=== PATIENT | female | born 1970 | race Caucasian/White ===

== ENCOUNTER 2016-06-01 21:15 | Emergency (ER) | payer BC ==
[~2016-06-01] VITALS: Ht 165.1 cm; Wt 99.8 kg
[~2016-06-01 21:15] MED LIST: ALBU8.5H2 IH; AZIT-21 PO; BCP; CTLP20T PO; INHA1INH8 MC; OSLT75CRX PO; PRD20T PO; PRD50T PO; TRM50T PO; VENL150C
[2016-06-01] MEDS ORDERED: RX-ALBUTEROL INHALER (VENTOLIN HFA) 18 GM IH STA (21:24)
--- NOTE | 2016-06-01 21:24 | ED Dyspnea ---
General Stated Complaint: COUGH,CONGESTION Source of Information: Patient Exam Limitations: No Limitations History of Present Illness Time Seen by Provider: 21:23 Initial Comments To ER with reports of shortness of breath, wheezing and awakening with a productive cough this morning. No fevers or chills. She's recently had a rash that was treated with a course of steroids and she is still on prednisone. She is a smoker about 6 cigarettes per day. She denies fevers or chills. She does report rhinorrhea. Denies any known history of reactive airway disease such as asthma Timing/Duration: 24 Hours Severity: Moderate Associated Symptoms: Wheezing Allergies and Home Medications Allergies Coded Allergies: Ibuprofen (Unverified Allergy, Mild, 08/25/08) Penicillins (Unverified Allergy, Mild, 08/25/08) Home Medications Oseltamivir Phosphate 75 Mg Cap #10 75 MG PO BID (Reported) Prednisone 20 Mg Tab #6 2 TAB PO DAILY 2 TABS DAILY IN THE MORNING FOR 3 DAYS 1 TAB DAILY IN THE MORNING FOR 5 DAYS 1/2 TAB DAILY IN THE MORNING FOR 6 DAYS Prescribed by: DIONI ULLOA on 05/10/14 0945 Constitutional: see HPI Respiratory: see HPI cough wheezing Cardiovascular: no symptoms reported Genitourinary: no symptoms reported Musculoskeletal: no symptoms reported Skin: no symptoms reported Psychiatric/Neurological: No Symptoms Reported Endocrine: No Symptoms Reported Past Wklcjpc-Vyhrfm-Swwrus Hx Patient Social History Recent Foreign Travel: No Contact w/Someone Who Travel: No Seasonal Allergies Seasonal Allergies: No Surgeries HX Surgeries: No Respiratory Hx Respiratory Disorders: No Cardiovascular Hx Cardiac Disorders: No Neurological Hx Neurological Disorders: No Reproductive System Hx Reproductive Disorders: No Genitourinary Hx Genitourinary Disorders: No Gastrointestinal Hx Gastrointestinal Disorders: No Musculoskeletal Hx Musculoskeletal Disorders: No Endocrine Hx Endocrine Disorders: No HEENT HX ENT Disorders: No Cancer Hx Cancer: No Psychosocial Hx Psychiatric Problems: No Integumentary HX Skin/Integumentary Disorder: No Blood Transfusions Hx Blood Disorders: No Adverse Reaction to a Blood Tr: No Physical Exam Vital Signs Vital Sign - Last 12Hours 06/01/16 21:19 Temp 99.1 Pulse 102 Resp 20 B/P 136/103 Pulse Ox 95 O2 Delivery Room Air Capillary Refill : General Appearance: No Apparent Distress WD/WN HEENT: PERRL/EOMI TMs Normal Respiratory: No Accessory Muscle Use No Respiratory Distress Decreased Breath Sounds Wheezing Cardiovascular: Regular Rate, Rhythm Normal Peripheral Pulses Gastrointestinal: Normal Bowel Sounds Non Tender Soft Neurologic/Psychiatric: Alert Oriented x3 Skin: Normal Color Warm/Dry Progress/Results/Core Measures Results/Orders My Orders Orders-NEHAL MENDES APRN Albuterol/Ipra Inhalation Soln (Duoneb I (06/01/16 21:30) Svn Sm Volume Nebulizer Rt-Rfs (06/01/16 21:22) Chest Pa/Lat (2 View) (06/01/16 21:22) Accucheck Stat ONCE (06/01/16 21:24) Rx-Albuterol Inhaler (Rx-Ventolin Hfa) (06/01/16 21:24) Rx-Albuterol Inhaler (Rx-Proair) (06/01/16 22:05) Medications Given in ED Current Medications Medications Dose Ordered Sig/Jori Route Start Time Stop Time Status Last Admin Dose Admin Albuterol/ Ipratropium 3 ml ONCE ONCE INH 06/01/16 21:30 06/01/16 21:31 DC 06/01/16 21:29 3 ML Vital Signs/I&O Vital Sign - Last 12Hours 06/01/16 06/01/16 06/01/16 21:19 21:19 21:29 Temp 99.1 Pulse 102 Resp 20 B/P 136/103 Pulse Ox 95 98 O2 Delivery Room Air Room Air Departure Impression Impression: Primary Impression: Bronchospasm Disposition: 01 HOME, SELF-CARE Condition: Stable Departure-Patient Inst. Decision time for Depature: 22:09 Referrals: JONATHAN VÁSQUEZ DO (PCP/Family) Primary Care Physician Patient Instructions: BRONCHOSPASM-ADULT Add. Discharge Instructions: Take the inhaler 2 puffs every 4 hours as needed for pain 2. Return to ER for any concerns 3. NEHAL MENDES APRN Jun 01, 2016 21:24 rn NEHAL MENDES APRN Jun 01, 2016 21:24
[2016-06-01] MEDS ORDERED: RT-ALBUTEROL/IPRATROPIUM 3 ML (DUONEB) VIAL INH ONE (21:30)
--- NOTE | 2016-06-01 21:55 | Diagnostic Imaging Report ---
INDICATION: Cough COMPARISON: 07/19/09 FINDINGS: Frontal and lateral views of the chest demonstrate clear lungs bilaterally. The heart size is normal. There is no pneumothorax. Osseous structures are age-appropriate. IMPRESSION: Negative chest. Dictated by: Dictated on workstation # [id number]
[2016-06-01] MEDS ORDERED: RX-ALBUTEROL INHALER (PROAIR) 8 GM IH ONE (22:05)
[2016-06-01 22:47] VITALS: BP 0/0
== END 2016-06-01 22:47 | disposition home or self-care (01) ==
LOC: EDUNIT# 21:15 → ER 21:18
DX: J98.01 Acute bronchospasm (principal); F17.210 Nicotine dependence, cigarettes, uncomplicated
CPT/HCPCS: 71020; 94640; 99283

== ENCOUNTER 2016-11-12 22:48 | Emergency (ER) | payer BC ==
[~2016-11-12] VITALS: Ht 165.1 cm; Wt 97.5 kg
[2016-11-12] MEDS ORDERED: AZIT250T5 (23:02)
[2016-11-12] MEDS ORDERED: Hydrocodone (23:02)
[2016-11-12 23:50] LABS: BASOPHILS # (AUTO) 0.1 10^3/uL (0.0-0.1); BASOPHILS % (AUTO) 0 % (0-10); EOSINOPHILS # (AUTO) 0.4 10^3/uL (0.0-0.3); EOSINOPHILS % (AUTO) 2 % (0-10); LYMPHOCYTES # (AUTO) 4.4 X 10^3 (1.0-4.0); LYMPHOCYTES % (AUTO) 25 % (12-44); MEAN CORPUSCULAR HEMOGLOBIN 30 PG (25-34); MEAN CORPUSCULAR HGB CONC 33 G/DL (32-36); MEAN CORPUSCULAR VOLUME 93 FL (80-99); MEAN PLATELET VOLUME 9.1 FL (7.4-10.4); MONOCYTES % (AUTO) 6 % (0-12); NEUTROPHILS # (AUTO) 11.8 X 10^3 (1.8-7.8); NEUTROPHILS % (AUTO) 67 % (42-75); PLATELET COUNT 367 10^3/uL (130-400); RED BLOOD COUNT 4.13 10^6/uL (4.35-5.85); RED CELL DISTRIBUTION WIDTH 15.4 % (10.0-14.5); WHITE BLOOD COUNT 17.7 10^3/uL (4.3-11.0)
[2016-11-13 00:08] LABS: EOSINOPHILS % (MANUAL) 2 %; LYMPHOCYTES % (MANUAL) 20 %; NEUTROPHILS % (MANUAL) 76 %
[2016-11-13 00:09] LABS: ANISOCYTOSIS SLIGHT; STOMATOCYTES MODERATE
[2016-11-13 00:10] LABS: ALANINE AMINOTRANSFERASE 15 U/L (0-55); ALBUMIN 3.7 GM/DL (3.2-4.5); ALCOHOL < 10 MG/DL (<10); ANION GAP 14 MMOL/L (5-14); ASPARTATE AMINO TRANSFERASE 11 U/L (5-34); BILIRUBIN,TOTAL 0.2 MG/DL (0.1-1.0); BLOOD UREA NITROGEN 16 MG/DL (7-18); BUN/CREATININE RATIO 20; CALCIUM 8.9 MG/DL (8.5-10.1); CARBON DIOXIDE 20 MMOL/L (21-32); CHLORIDE 104 MMOL/L (98-107); CREATININE SERUM 0.79 MG/DL (0.60-1.30); GFR ESTIMATED > 60; GLUCOSE 96 MG/DL (70-105); MAGNESIUM 2.1 MG/DL (1.8-2.4); POTASSIUM 3.9 MMOL/L (3.6-5.0); SODIUM 138 MMOL/L (135-145); TOTAL PROTEIN 7.5 GM/DL (6.4-8.2)
--- NOTE | 2016-11-13 00:12 | ED General ---
General Chief Complaint: Dizziness/Syncope Stated Complaint: DIZZINESS X4 DAYS Nursing Triage Note: Pt reports being dizzy 4 days with worst day on Tue and was at Urgent Care that afternoon. Pt rec'd a steroid shot and advised Benadryl for poss. reaction to her meds (Azithromycin by Dr Thompson) for tooth abscess Nursing Sepsis Screen: No Definite Risk Source of Information: Patient History of Present Illness Time Seen by Provider: 23:10 Initial Comments PT ARRIVES VIA POV AND AMBULATES IN ON HER OWN WITHOUT DIFFICULTY C/O DIZZINESS X 4 DAYS, OFF AND ON WORST DAY WAS Tuesday11/10/16 SEEN AT [facility] THAT DAY AND GIVEN STEROID SHOT AND STARTED ON BENADRYL FOR POSSIBLE ALLERGIC REACTION TO ZITHROMAX CAUSE FOR HER DIZZINESS ( HAS BEEN TAKING FOR DENTAL INFECTION, PRESCRIBED BY DR. THOMPSON, DENTIST, AND WAS ON IT 3 WEEKS AGO AND DID NOT HAVE ANY PROBLEMS) NO HEADACHE NO VISION CHANGES NO NAUSEA/VOMITING NO PARESTHESIAS OR MOTOR DEFICITS AT THIS TIME (DOES STATE SHE OCCASIONALLY WILL HAVE TINGLING IN HER FINGERS AND TOES BILATERALLY, BRIEFLY, BUT NOT NECESSARILY ASSOCIATED WITH DIZZINESS) NO CHEST PAIN, SHORTNESS OF BREATH OR PALPITATIONS NO SWEATS STATES EPISODE ON TUESDAY BEGAN WHILE SHE WAS ON THE TOILET, AND SHE FELT LIKE SHE COULDN'T WALK STRAIGHT WHEN SHE STOOD UP, AND THAT EPISODE LASTED 10 MINUTES STATES SHE HAS HAD A FEW, BRIEF, MUCH MILDER EPISODES OFF AND ON SINCE THEN TONIGHT SHE WAS AT [facility] AND WAS SITTING WHEN SYMPTOMS BEGAN. DENIES ANY SUDDEN MOVEMENTS OF BODY OR HEAD PRIOR TO ONSET. BEGAN LESS THAN 20 MINUTES PRIOR TO ARRIVAL--CAME STRAIGHT HERE FROM [facility], DAUGHTER DROVE SYMPTOMS ARE ESSENTIALLY GONE NOW. NO RECENT ILLNESS, FEVER, COLD/SINUS PROBLEMS, ETC. PT HAS ONGOING PROBLEMS WITH MULTIPLE TEETH. MOST PAIN NOW IS TO RIGHT UPPER MOLAR/PREMOLAR AREA, BUT ALSO HAVING PROBLEMS WITH SEVERAL LOWER TEETH WELL. NO PCP--GOES TO [facility] FOR ALL MEDICAL CARE Allergies and Home Medications Allergies Coded Allergies: Ibuprofen (Unverified Allergy, Mild, 08/25/08) Penicillins (Unverified Allergy, Mild, 08/25/08) Home Medications Azithromycin 250 Mg Tablet, #6 (Reported) Meclizine HCl 25 Mg Tablet, 25-50 MG PO Q6H, #30 Prescribed by: CESAR WOODWARD on 11/13/1624 Scopolamine 1 Each Patch.td72, 1 EACH TD Q72 HOURS, #3 Prescribed by: CESAR WOODWARD on 11/13/1624 [Hydrocodone] , (Reported) Constitutional: No see HPI, No chills, No diaphoresis, dizziness, No fever, No malaise, No weakness EENTM: other (DENTAL PAIN ), see HPI, No blurred vision, No double vision, No ear pain, No nose congestion Respiratory: no symptoms reported, No cough, No dyspnea on exertion, No short of breath Cardiovascular: no symptoms reported, No edema, No palpitations, No syncope, No vascular heart diseas Gastrointestinal: no symptoms reported, No abdominal pain, No nausea, No vomiting Genitourinary: no symptoms reported Musculoskeletal: no symptoms reported Skin: no symptoms reported Psychiatric/Neurological: See HPI (DIZZINESS), Denies Headache, Denies Seizure , Tingling (TO ALL FINGERS AND TOES, ON OCCASION), Denies Weakness Hematologic/Lymphatic: No Symptoms Reported Immunological/Allergic: no symptoms reported Past Esnjkzn-Dhytnb-Pbiqqo Hx Patient Social History Alcohol Use: Occasionally Uses Recreational Drug Use: No Smoking Status: Current Everyday Smoker (1 PPD) Type Used: Cigarettes 2nd Hand Smoke Exposure: Yes Recent Foreign Travel: No Contact w/Someone Who Travel: No Recent Infectious Disease Expo: No Recent Hopitalizations: No Seasonal Allergies Seasonal Allergies: No Surgeries HX Surgeries: No Respiratory Hx Respiratory Disorders: No Cardiovascular Hx Cardiac Disorders: No Neurological Hx Neurological Disorders: No Reproductive System Hx Reproductive Disorders: No Genitourinary Hx Genitourinary Disorders: No Gastrointestinal Hx Gastrointestinal Disorders: No Musculoskeletal Hx Musculoskeletal Disorders: No Endocrine Hx Endocrine Disorders: No HEENT HX ENT Disorders: Yes ("BAD TEETH" ) Cancer Hx Cancer: No Psychosocial Hx Psychiatric Problems: No Integumentary HX Skin/Integumentary Disorder: No Blood Transfusions Hx Blood Disorders: No Adverse Reaction to a Blood Tr: No Physical Exam Vital Signs Vital Sign - Last 12Hours 11/12/16 22:53 Temp 98.0 Pulse 93 Resp 20 B/P (MAP) 166/91 Pulse Ox 96 O2 Delivery Room Air Capillary Refill : Less Than 3 Seconds General Appearance: No Apparent Distress, Obese HEENT: PERRL/EOMI, TMs Normal, Pharynx Normal, Other (EXTENSIVE DENTAL DECAY. MUCH TENDERNESS TO RIGHT UPPER PREMOLAR AREA, WITHOUT EVIDENCE OF ABSCESS. NO SINUS TENDERNESS. NO NASAL CONGESTION OR DRAINAGE. ) Neck: Full Range of Motion, Normal Inspection, Non Tender, Supple, No Carotid Bruit, No JVD Respiratory: Normal Breath Sounds, No Accessory Muscle Use, No Respiratory Distress Cardiovascular: Regular Rate, Rhythm, No Edema, No JVD, No Murmur, Normal Peripheral Pulses Gastrointestinal: No Pulsatile Mass, Non Tender, Soft Back: Normal Inspection Extremity: Normal Capillary Refill, Normal Inspection, Normal Range of Motion, Non Tender, No Calf Tenderness, No Pedal Edema Neurologic/Psychiatric: Alert, Oriented x3, No Motor/Sensory Deficits, Normal Mood/Affect, analysis internship II-XII Norm as Tested, No Abnormal Cerebellar Tests, No Abnormal Gait Skin: Normal Color, Warm/Dry, Tattoos/Piercings (TATTOOS) Progress/Results/Core Measures Results/Orders Lab Results Laboratory Tests Test 11/12/16 23:40 11/13/16 00:45 Range/Units White Blood Count 17.7 H 4.3-11.0 10^3/uL Red Blood Count 4.13 L 4.35-5.85 10^6/uL Hemoglobin 12.4 11.5-16.0 G/DL Hematocrit 38 35-52 % Mean Corpuscular Volume 93 80-99 FL Mean Corpuscular Hemoglobin 30 25-34 PG Mean Corpuscular Hemoglobin Concent 33 32-36 G/DL Red Cell Distribution Width 15.4 H 10.0-14.5 % Platelet Count 367 130-400 10^3/uL Mean Platelet Volume 9.1 7.4-10.4 FL Neutrophils (%) (Auto) 67 42-75 % Lymphocytes (%) (Auto) 25 12-44 % Monocytes (%) (Auto) 6 0-12 % Eosinophils (%) (Auto) 2 0-10 % Basophils (%) (Auto) 0 0-10 % Neutrophils # (Auto) 11.8 H 1.8-7.8 X 10^3 Lymphocytes # (Auto) 4.4 H 1.0-4.0 X 10^3 Monocytes # (Auto) 1.0 0.0-1.0 X 10^3 Eosinophils # (Auto) 0.4 H 0.0-0.3 10^3/uL Basophils # (Auto) 0.1 0.0-0.1 10^3/uL Neutrophils % (Manual) 76 % Lymphocytes % (Manual) 20 % Monocytes % (Manual) 2 % Eosinophils % (Manual) 2 % Anisocytosis SLIGHT Stomatocytes MODERATE Sodium Level 138 135-145 MMOL/L Potassium Level 3.9 3.6-5.0 MMOL/L Chloride Level 104 98-107 MMOL/L Carbon Dioxide Level 20 L 21-32 MMOL/L Anion Gap 14 5-14 MMOL/L Blood Urea Nitrogen 16 7-18 MG/DL Creatinine 0.79 0.60-1.30 MG/DL Estimat Glomerular Filtration Rate > 60 BUN/Creatinine Ratio 20 Glucose Level 96 70-105 MG/DL Calcium Level 8.9 8.5-10.1 MG/DL Magnesium Level 2.1 1.8-2.4 MG/DL Total Bilirubin 0.2 0.1-1.0 MG/DL Aspartate Amino Transf (AST/SGOT) 11 5-34 U/L Alanine Aminotransferase (ALT/SGPT) 15 0-55 U/L Alkaline Phosphatase 109 40-136 U/L Troponin I < 0.30 <0.30 NG/ML Total Protein 7.5 6.4-8.2 GM/DL Albumin 3.7 3.2-4.5 GM/DL TSH [place] Testing 3.50 0.35-4.94 UIU/ML Serum Test, Qualitative NEGATIVE NEGATIVE Serum Alcohol < 10 <10 MG/DL Urine Color YELLOW Urine Clarity CLEAR Urine pH 6 5-9 Urine Specific [place] 1.025 H 1.016-1.022 Urine Protein 1+ H NEGATIVE Urine Glucose (UA) NEGATIVE NEGATIVE Urine Ketones NEGATIVE NEGATIVE Urine Nitrite NEGATIVE NEGATIVE Urine Bilirubin NEGATIVE NEGATIVE Urine Urobilinogen NORMAL NORMAL MG/DL Urine Leukocyte Esterase 1+ H NEGATIVE Urine RBC (Auto) 2+ H NEGATIVE Urine RBC 2-5 H /HPF Urine WBC RARE /HPF Urine Squamous Epithelial Cells 10-25 H /HPF Urine Crystals NONE /LPF Urine Bacteria TRACE /HPF Urine Casts NONE /LPF Urine Mucus SMALL H /LPF Urine Culture Indicated NO Urine Opiates Screen NEGATIVE NEGATIVE Urine Oxycodone Screen NEGATIVE NEGATIVE Urine Methadone Screen NEGATIVE NEGATIVE Urine Propoxyphene Screen NEGATIVE NEGATIVE Urine Barbiturates Screen NEGATIVE NEGATIVE Ur Tricyclic Antidepressants Screen NEGATIVE NEGATIVE Urine Phencyclidine Screen NEGATIVE NEGATIVE Urine Amphetamines Screen NEGATIVE NEGATIVE Urine Methamphetamines Screen NEGATIVE NEGATIVE Urine Benzodiazepines Screen NEGATIVE NEGATIVE Urine Cocaine Screen NEGATIVE NEGATIVE Urine Cannabinoids Screen NEGATIVE NEGATIVE My Orders Orders - CESAR WOODWARD DO Saline Lock/Iv-Start (11/12/16 23:12) Orthostatic Vital Signs (11/12/16 23:12) Ekg Tracing (11/12/16 23:12) Monitor-Rhythm Ecg Trace Only (11/12/16 23:12) Alcohol (11/12/16 23:12) Cbc With Automated Diff (11/12/16 23:12) Comprehensive Metabolic Panel (11/12/16 23:12) Drug Screen Stat (Urine) (11/12/16 23:12) Hcg,Qualitative Serum (11/12/16 23:12) Magnesium (11/12/16 23:12) Thyroid Analyzer (11/12/16 23:12) Troponin I (11/12/16 23:12) Ua Culture If Indicated (11/12/16 23:12) Ct Head Wo (11/12/16 23:12) Manual Differential (11/12/16 23:40) Scopolamine Patch (Transderm-Scop Patch) (11/13/16 00:15) Meclizine Tablet (Antivert Tablet) (11/13/16 00:15) Medications Given in ED Current Medications Medications Dose Ordered Sig/Jori Route Start Time Stop Time Status Last Admin Dose Admin Meclizine HCl 50 mg ONCE ONCE PO 11/13/16 00:15 11/13/16 00:17 DC 11/13/16 00:20 50 MG Scopolamine 1.5 mg ONCE ONCE TD 11/13/16 00:15 11/13/16 00:17 DC 11/13/16 00:20 1.5 MG Vital Signs/I&O Vital Sign - Last 12Hours 11/12/16 11/12/16 22:53 23:30 Temp 98.0 Pulse 93 81 85 83 Resp 20 B/P (MAP) 166/91 Pulse Ox 96 O2 Delivery Room Air Blood Pressure Mean: 116 Progress Note : Progress Note ORTHOSTATICS NORMAL NO DETERIORATION IN PT'S CONDITION DURING ER STAY, AND DIZZINESS RESOLVED ON ARRIVAL TO ER PT AMBULATED IN AND OUT OF ER ON HER OWN WITHOUT DIFFICULTY ECG Initial ECG Impression Time: 23:25 Initial ECG Rate: 82 Initial ECG Rhythm: Normal Sinus Initial ECG Impression: Normal Initial ECG Comparisson: No Previous ECG Available Diagnostic Imaging Comments CT HEAD--NO ACUTE PROCESS, PER [facility] VIA FAX @ 0117 Reviewed: Reviewed by Me Departure Impression Impression: Primary Impression: Intermittent vertigo Additional Impressions: Chronic dental infection CHRONIC DENTAL CARIES Disposition: HOME, SELF-CARE Condition: Improved Departure-Patient Inst. Referrals: NO,LOCAL PHYSICIAN (PCP/Family) Primary Care Physician Patient Instructions: Vertigo (a Type of Dizziness) (DC) Add. Discharge Instructions: SLOW POSITION CHANGES FOLLOW UP WITH OF LUI ON TUESDAY FOR FURTHER CARE RETURN TO ER IF WORSE All discharge instructions reviewed with patient and/or family. Voiced understanding. Scripts Meclizine HCl (Meclizine HCl) 25 Mg Tablet 25-50 MG PO Q6H for Dizziness, #30 TAB Prov: CESAR WOODWARD DO 11/13/16 Scopolamine (Transderm-Scop) 1 Each Patch.td72 1 EACH TD Q72 HOURS for Dizziness, #3 PATCH Prov: CESAR WOODWARD DO 11/13/16 Work/School Note: Local Medical Staff Listing CESAR WOODWARD DO Nov 13, 2016 00:12
[2016-11-13] MEDS ORDERED: MECLIZINE 25 MG (ANTIVERT) TAB PO ONE (00:15)
[2016-11-13] MEDS ORDERED: SCOPOLAMINE 1.5 MG (TRANSDERM-SCOP) PATCH TD ONE (00:15)
[2016-11-13] MEDS ORDERED: SCOP1PAT TD (00:25)
[2016-11-13] MEDS ORDERED: MECL-106 PO (00:25)
[2016-11-13 00:29] LABS: TROPONIN I < 0.30 NG/ML (<0.30)
[2016-11-13 00:52] LABS: BILIRUBIN,URINE NEGATIVE (NEGATIVE); KETONES,URINE NEGATIVE (NEGATIVE); LEUKOCYTE ESTERASE ,URINE 1+ (NEGATIVE); NITRITE,URINE NEGATIVE (NEGATIVE); PH,URINE 6 (5-9); PROTEIN,URINE 1+ (NEGATIVE); UROBILINOGEN,URINE NORMAL (NORMAL)
[2016-11-13 01:06] LABS: WBC,URINE RARE /HPF
[2016-11-13 01:32] VITALS: BP 126/70
--- NOTE | 2016-11-13 07:56 | Diagnostic Imaging Report ---
PROCEDURE: CT head without contrast. TECHNIQUE: Multiple contiguous axial images were obtained through the brain without the use of intravenous contrast. INDICATION: Dizziness. COMPARISON: None. FINDINGS: Ventricles are normal in size, shape, and position. There is no midline shift or mass effect. There is no hemorrhage or evidence of acute ischemia. No cerebral edema is seen. The bony calvarium, visualized paranasal sinuses, and mastoids are normal. IMPRESSION: No acute intracranial abnormalities. I agree with preliminary report. Dictated by: Dictated on workstation # [id number]
== END 2016-11-13 01:32 | disposition home or self-care (01) ==
LOC: EDUNIT# 22:48 → ER 22:51
DX: R42 Dizziness and giddiness (principal); K02.9 Dental caries, unspecified; K04.7 Periapical abscess without sinus; F17.210 Nicotine dependence, cigarettes, uncomplicated
CPT/HCPCS: 36415; 70450; 80053; 80306; 80320; 81000; 83735; 84443; 84484; 84703; 85007; 85027; 93005; 93041

== ENCOUNTER 2017-01-08 00:58 | Emergency (ER) | payer BC ==
[~2017-01-08] VITALS: Ht 165.1 cm; Wt 95.3 kg
[~2017-01-08 00:58] MED LIST changes: +AZIT250T12; +Hydrocodone; +MECL-106 PO; +SCOP1PAT TD
[2017-01-08] MEDS ORDERED: RX-CLINDAMYCIN 150 MG (CLEOCIN) CAP PPK#4 PO STA (01:39)
[2017-01-08] MEDS ORDERED: RX-TRAMADOL 50 MG (ULTRAM) TAB PPK#4 PO STA (01:39)
[2017-01-08] MEDS ORDERED: CLIN300C11 PO (01:42)
[2017-01-08] MEDS ORDERED: LIDO15SO2 MM (01:42)
[2017-01-08] MEDS ORDERED: TRAM-42 PO (01:42)
--- NOTE | 2017-01-08 01:42 | ED EENT ---
History of Present Illness General Chief Complaint: Dental Problems/Pain Stated Complaint: DENTAL PAIN Source: patient History of Present Illness Time seen by provider: 01:33 Initial Comments C/O DENTAL PAIN TO RIGHT LOWER MOLAR AREA--BEGAN EARLIER TODAY HAS HAD PROBLEMS WITH THIS TOOTH--LOTS OF DECAY SAW DENTIST, DR. LIRA, ON TUESDAY AND HE "SCRAPED ALOT OF DECAY" AND POSSIBLY "PART OF A ROOT CANAL" WAS NOT HAVING ANY PAIN OR PROBLEMS UNTIL TODAY PAIN RADIATING TO RIGHT HEAR NO SWELLING TO FACE/JAW NO FEVER PCP: NONE--[facility]ICAL CARE Allergies and Home Medications Allergies Coded Allergies: Penicillins (Unverified Allergy, Mild, 08/25/08) ibuprofen (Unverified Allergy, Mild, 08/25/08) Home Medications Azithromycin 250 Mg Tablet, #6 (Reported) Clindamycin HCl 300 Mg Capsule, 300 MG PO QID, #40 Prescribed by: CESAR WOODWARD on 01/08/17141 Lidocaine HCl 15 Ml Solution, 1-2 ML MM Q 1-2 HOURS, #100 Prescribed by: CESAR WOODWARD on 01/08/17141 Meclizine HCl 25 Mg Tablet, 25-50 MG PO Q6H, #30 Prescribed by: CESAR WOODWARD on 11/13/16 002 Scopolamine 1 Each Patch.td72, 1 EACH TD Q72 HOURS, #3 Prescribed by: CESAR WOODWARD on 11/13/1624 Tramadol HCl 50 Mg Tablet, 50 MG PO Q4H, #20 Prescribed by: CESAR WOODWARD on 01/08/17141 [Hydrocodone] , (Reported) Review of Systems Constitutional: no symptoms reported Eyes: No Symptoms Reported Ears: See HPI Nose: no symptoms reported Mouth: see HPI Throat: no symptoms reported Respiratory: no symptoms reported Cardiovascular: no symptoms reported Musculoskeletal: no symptoms reported Skin: no symptoms reported Neurological: No Symptoms Reported Past Yvxqnwc-Pjwhwo-Nkapap Hx Patient Social History Alcohol Use: Occasionally Uses Smoking Status: Current Everyday Smoker (1 PPD) Type Used: Cigarettes 2nd Hand Smoke Exposure: Yes Recent Foreign Travel: No Contact w/Someone Who Travel: No Recent Hopitalizations: No Seasonal Allergies Seasonal Allergies: No Surgeries History of Surgeries: No Respiratory History of Respiratory Disorde: No Cardiovascular History of Cardiac Disorders: No Neurological History of Neurological Disord: No Reproductive System Hx Reproductive Disorders: No Genitourinary History of Genitourinary Disor: No Gastrointestinal History of Gastrointestinal Di: No Musculoskeletal History of Musculoskeletal Dis: No Endocrine History of Endocrine Disorders: No HEENT History of HEENT Disorders: Yes (CHRONIC DENTAL PROBLEMS--"BAD TEETH") Cancer History of Cancer: No Psychosocial History of Psychiatric Problem: No Integumentary History of Skin or Integumenta: No Blood Transfusions History of Blood Disorders: No Adverse Reaction to a Blood Tr: No Physical Exam Vital Signs Vital Sign - Last 12Hours 01/08/17 01:38 Temp 97.5 Pulse 87 Resp 14 B/P (MAP) 175/95 Pulse Ox 97 O2 Delivery Room Air General Appearance: no apparent distress, obese Eyes: bilateral eye normal inspection, bilateral eye PERRL, bilateral eye EOMI Ears: bilateral ear auricle normal, bilateral ear canal normal, bilateral ear TM normal Nose: normal inspection Mouth/Throat: dental tenderness, No excessive drooling, No mandibular swelling , No maxillary swelling, No trismus, other (RIGHT LOWER FIRST MOLAR WITH FILLING IN PLACE, SURROUNDGIN GUM TISSUE MILDLY SWOLLEN AND ERYTHEMATOUS, AND TENDER TO PERCUSSION. MULTIPLE MISSING TEETH AND EXTENSIVE DENTAL DECAY. NO FACIAL OR JAW SWELLING OR TENDERNESS) Neck: non-tender, full range of motion, supple, normal inspection, No lymphadenopathy (R), No lymphadenopathy (L) Cardiovascular: regular rate, rhythm, no murmur Neurologic/Psychiatric: ug designer II-XII nml as tested, no motor/sensory deficits, alert, normal mood/affect, oriented x 3 Skin: normal color, warm/dry, No rash Progress/Results/Core Measures Results/Orders My Orders Orders - CESAR WOODWARD DO Rx-Clindamycin Capsule (Rx-Cleocin Capsu (01/08/17 01:39) Rx-Tramadol Hcl (Rx-Ultram) (01/08/17 01:39) Lidocaine 2% Viscous 15 Ml (Xylocaine Vi (01/08/17 01:45) Medications Given in ED Current Medications Medications Dose Ordered Sig/Jori Route Start Time Stop Time Status Last Admin Dose Admin Lidocaine HCl 5 ml ONCE ONCE MM 01/08/17 01:45 01/08/17 01:46 DC 01/08/17 02:05 5 ML Vital Signs/I&O Vital Sign - Last 12Hours 01/08/17 01/08/17 01:38 01:48 Temp 97.5 97.5 Pulse 87 87 Resp 14 14 B/P (MAP) 175/95 Pulse Ox 97 97 O2 Delivery Room Air Room Air Departure Impression Impression: Primary Impression: Dental infection Disposition: HOME, SELF-CARE Condition: Stable Departure-Patient Inst. Referrals: TY LIRA DDS NO,LOCAL PHYSICIAN (PCP) Primary Care Physician Patient Instructions: Dental Pain (DC), Tooth Decay, Adult (DC), Tooth Abscess (DC) Add. Discharge Instructions: FREQUENT SALT WATER SWISHES FOLLOW UP WITH DR. LIRA ON TUESDAY FOR FURTHER CARE All discharge instructions reviewed with patient and/or family. Voiced understanding. Scripts Lidocaine HCl (Lidocaine HCl Viscous) 15 Ml Solution 1-2 ML MM Q 1-2 HOURS for Pain, #100 ML Prov: CESAR WOODWARD DO 01/08/17 Tramadol HCl (Ultram) 50 Mg Tablet 50 MG PO Q4H, #20 TAB Prov: CESAR WOODWARD DO 01/08/17 Clindamycin HCl (Clindamycin HCl) 300 Mg Capsule 300 MG PO QID for FOR INFECTION, #40 CAP Prov: CESAR WOODWARD DO 01/08/17 CESAR WOODWARD DO Jan 08, 2017 01:42
[2017-01-08] MEDS ORDERED: LIDOCAINE 2% VISCOUS 15 ML UDC MM ONE (01:45)
[2017-01-08 01:48] VITALS: BP 175/95
== END 2017-01-08 02:07 | disposition home or self-care (01) ==
LOC: EDUNIT# 00:58 → ER 01:01
DX: K04.7 Periapical abscess without sinus (principal); F17.210 Nicotine dependence, cigarettes, uncomplicated
CPT/HCPCS: 99283

== ENCOUNTER 2017-03-31 20:40 | Emergency (ER) | payer BC ==
[~2017-03-31] VITALS: Ht 165.1 cm; Wt 97.5 kg
[~2017-03-31 20:40] MED LIST changes: +CLIN300C11 PO; +LIDO15SO2 MM; +TRAM-42 PO
--- OUTSIDE RECORDS SUMMARY | 2017-03-31 20:46 | XMS REPORT | Continuity of Care Document ---
Author Author [facility] Organization [facility] Address Unknown Phone Unavailable Allergies Active Description Code Type Severity Reaction Onset Reported/Identified Relationship to Patient Clinical Status Yes ibuprofen [id number] Drug Allergy Mild N/A 08/25/2008 Yes Penicillins [id number] Drug Allergy Mild N/A 08/25/2008 Medications There is no data. Problems Date Dx Coded Attending Type Code Diagnosis Diagnosed By 02/26/2010 Ot 466.0 02/26/2010 Ot 486 02/26/2010 Ot 786.2 05/10/2014 DIONI ULLOA MD Ot 487.1 FLU W RESP MANIFEST NEC 05/10/2014 DIONI ULLOA MD Ot 784.2 SWELLING IN HEAD NECK 05/10/2014 DIONI ULLOA MD Ot 786.05 SHORTNESS OF BREATH 05/10/2014 DIONI ULLOA MD Ot E931.7 ADV EFF ANTIVIRAL DRUGS 06/01/2016 NEHAL MENDES APRN Ot F17.210 NICOTINE DEPENDENCE, CIGARETTES, UNCOMPL 06/01/2016 NEHAL MENDES APRN Ot J98.01 ACUTE BRONCHOSPASM 06/01/2016 NEHAL MENDES APRN Ot R06.02 SHORTNESS OF BREATH 11/13/2016 CESAR WOODWARD DO Ot F17.210 NICOTINE DEPENDENCE, CIGARETTES, UNCOMPL 11/13/2016 CESAR WOODWARD DO Ot K02.9 DENTAL CARIES, UNSPECIFIED 11/13/2016 CESAR WOODWARD DO Ot K04.7 PERIAPICAL ABSCESS WITHOUT SINUS 11/13/2016 CESAR WOODWARD DO Ot R42 DIZZINESS AND GIDDINESS 01/08/2017 CESAR WOODWARD DO Ot F17.210 NICOTINE DEPENDENCE, CIGARETTES, UNCOMPL 01/08/2017 CESAR WOODWARD DO Ot K04.7 PERIAPICAL ABSCESS WITHOUT SINUS 01/08/2017 CESAR WOODWARD DO Ot K08.89 OTHER SPECIFIED DISORDERS OF TEETH AND S Procedures There is no data. Results Test Result Range Complete blood count (CBC) with automated white blood cell (WBC) differential - 11/12/16 23:40 Blood leukocytes automated count (number/volume) 17.7 10*3/uL 4.3-11.0 Blood erythrocytes automated count (number/volume) 4.13 10*6/uL 4.35-5.85 Venous blood hemoglobin measurement (mass/volume) 12.4 g/dL 11.5-16.0 Blood hematocrit (volume fraction) 38 % 35-52 Automated erythrocyte mean corpuscular volume 93 [foz_us] 80-99 Automated erythrocyte mean corpuscular hemoglobin (mass per erythrocyte) 30 pg 25-34 Automated erythrocyte mean corpuscular hemoglobin concentration measurement ( mass/volume) 33 g/dL 32-36 Automated erythrocyte distribution width ratio 15.4 % 10.0-14.5 Automated blood platelet count (count/volume) 367 10*3/uL 130-400 Automated blood platelet mean volume measurement 9.1 [foz_us] 7.4-10.4 Automated blood neutrophils/100 leukocytes 67 % 42-75 Automated blood lymphocytes/100 leukocytes 25 % 12-44 Blood monocytes/100 leukocytes 6 % 0-12 Automated blood eosinophils/100 leukocytes 2 % 0-10 Automated blood basophils/100 leukocytes 0 % 0-10 Blood neutrophils automated count (number/volume) 11.8 10*3 1.8-7.8 Blood lymphocytes automated count (number/volume) 4.4 10*3 1.0-4.0 Blood monocytes automated count (number/volume) 1.0 10*3 0.0-1.0 Automated eosinophil count 0.4 10*3/uL 0.0-0.3 Automated blood basophil count (count/volume) 0.1 10*3/uL 0.0-0.1 Serum or plasma choriogonadotropin ( test) detection - 11/12/16 23:40 Serum or plasma choriogonadotropin ( test) detection NEGATIVE NEGATIVE Blood manual differential performed detection - 11/12/16 23:40 Blood monocytes/100 leukocytes 2 % NRG Manual blood segmented neutrophils/100 leukocytes 76 % NRG Manual blood lymphocytes/100 leukocytes 20 % NRG Manual eosinophils/100 leukocytes in nose 2 % NRG Blood anisocytosis detection by light microscopy SLIGHT NRG Blood stomatocytes detection by light microscopy MODERATE NRG Comprehensive metabolic panel - 11/12/16 23:40 Serum or plasma sodium measurement (moles/volume) 138 mmol/L 135-145 Serum or plasma potassium measurement (moles/volume) 3.9 mmol/L 3.6-5.0 Serum or plasma chloride measurement (moles/volume) 104 mmol/L 98-107 Carbon dioxide 20 mmol/L 21-32 Serum or plasma anion gap determination (moles/volume) 14 mmol/L 5-14 Serum or plasma urea nitrogen measurement (mass/volume) 16 mg/dL 7-18 Serum or plasma creatinine measurement (mass/volume) 0.79 mg/dL 0.60-1.30 Serum or plasma urea nitrogen/creatinine mass ratio 20 NRG Serum or plasma creatinine measurement with calculation of estimated glomerular filtration rate > [facility] Serum or plasma glucose measurement (mass/volume) 96 mg/dL 70-105 Serum or plasma calcium measurement (mass/volume) 8.9 mg/dL 8.5-10.1 Serum or plasma total bilirubin measurement (mass/volume) 0.2 mg/dL 0.1-1.0 Serum or plasma alkaline phosphatase measurement (enzymatic activity/volume) 109 U/L 40-136 Serum or plasma aspartate aminotransferase measurement (enzymatic activity/ volume) 11 U/L 5-34 Serum or plasma alanine aminotransferase measurement (enzymatic activity/volume ) 15 U/L 0-55 Serum or plasma protein measurement (mass/volume) 7.5 g/dL 6.4-8.2 Serum or plasma albumin measurement (mass/volume) 3.7 g/dL 3.2-4.5 Magnesium - 11/12/16 23:40 Magnesium 2.1 mg/dL 1.8-2.4 Serum or plasma troponin i.cardiac measurement (mass/volume) - 11/12/16 23:40 Serum or plasma troponin i.cardiac measurement (mass/volume) < ng/ mL <0.30 Serum or plasma thyrotropin measurement by detection limit <=0.05 miu/l (units/ volume) - 11/12/16 23:40 Serum or plasma thyrotropin measurement by detection limit <=0.05 miu/l (units/ volume) 3.50 u[iU]/mL 0.35-4.94 Serum or plasma ethanol measurement (mass/volume) - 11/12/16 23:40 Serum or plasma ethanol measurement (mass/volume) < mg/dL <10 Urine drug screening test - 11/13/16 00:45 Urine phencyclidine detection by screening method NEGATIVE NEGATIVE Urine benzodiazepines detection by screening method NEGATIVE NEGATIVE Urine cocaine detection NEGATIVE NEGATIVE Urine amphetamines detection by screening method NEGATIVE NEGATIVE Urine methamphetamine detection by screening method NEGATIVE NEGATIVE Urine cannabinoids detection by screening method NEGATIVE NEGATIVE Urine opiates detection by screening method NEGATIVE NEGATIVE Urine barbiturates detection NEGATIVE NEGATIVE Screening urine tricyclic antidepressants detection NEGATIVE NEGATIVE Urine methadone detection by screening method NEGATIVE NEGATIVE Urine oxycodone detection NEGATIVE NEGATIVE Urine propoxyphene detection NEGATIVE NEGATIVE Complete urinalysis with reflex to culture - 11/13/16 00:45 Urine color determination YELLOW NRG Urine clarity determination CLEAR NRG Urine pH measurement by test strip 6 5-9 Specific gravity of urine by test strip 1.025 1.016- 1.022 Urine protein assay by test strip, semi-quantitative 1+ NEGATIVE Urine glucose detection by automated test strip NEGATIVE NEGATIVE Erythrocytes detection in urine sediment by light microscopy 2+ NEGATIVE Urine ketones detection by automated test strip NEGATIVE NEGATIVE Urine nitrite detection by test strip NEGATIVE NEGATIVE Urine total bilirubin detection by test strip NEGATIVE NEGATIVE Urine urobilinogen measurement by automated test strip (mass/volume) NORMAL NORMAL Urine leukocyte esterase detection by dipstick 1+ NEGATIVE Automated urine sediment erythrocyte count by microscopy (number/high power field) [HPF] NRG Automated urine sediment leukocyte count by microscopy (number/high power field ) RARE NRG Bacteria detection in urine sediment by light microscopy TRACE NRG Squamous epithelial cells detection in urine sediment by light microscopy 10-25 NRG Crystals detection in urine sediment by light microscopy NONE NRG Casts detection in urine sediment by light microscopy NONE NRG Mucus detection in urine sediment by light microscopy SMALL NRG Complete urinalysis with reflex to culture NO NRG Encounters ACCT No. Visit Date/Time Discharge Status Pt. Type Provider Facility Loc./Unit Complaint [id number] 01/08/2017 01:01:00 01/08/2017 02:07:00 DIS Emergency CRISSY CESAR Astrid [facility] ER DENTAL PAIN [id number] 11/12/2016 22:51:00 11/13/2016 01:32:00 DIS Emergency CRISSY CESAR Astrid [facility] ER DIZZINESS X4 DAYS [id number] 06/01/2016 21:18:00 06/01/2016 22:47:00 DIS Emergency NEHAL MENDES APRN [facility] ER COUGH,CONGESTION [id number] 05/10/2014 07:06:00 05/10/2014 10:28:00 DIS Emergency LAILA ROBERTSON, DIONI Resendiz [facility] ER FLU SYMPTOMS/POSS ALLERGIC REACTION [id number] 03/31/2017 20:41:00 ACT Emergency CJ ROBERTSON, KASSI Turner [facility] ER COUGH,CONGESTION [id number] 02/26/2010 17:34:00 Document Registration
[2017-03-31] MEDS ORDERED: AZIT250T12 PO (21:26)
--- NOTE | 2017-03-31 21:26 | ED Cough/URI ---
General Chief Complaint: Cough/Cold/Flu Symptoms Stated Complaint: COUGH,CONGESTION Nursing Triage Note: pt reports she developed a head cold tuesday and yesterday started having a cough and chest pain with inspiration. Source: patient Exam Limitations: no limitations History of Present Illness Time seen by provider: 21:20 Initial Comments 1 week progressively worsening upper a story tract infection. She thought she had a cold that she is having thick mucus and pain in her maxillary sinuses bilaterally. She does not have a history of any facial surgery. She's not sure she's had a fever she doesn't have a thermometer but she has had some chills. She's had no nausea, productive cough, vomiting. She has says this started as a sore throat and has spread. She is also feeling some pain when she coughs or takes a deep breath. She usually smokes between one quarter and one half pack per day. Allergies and Home Medications Allergies Coded Allergies: Penicillins (Unverified Allergy, Mild, 08/25/08) ibuprofen (Unverified Allergy, Mild, 08/25/08) Home Medications Azithromycin 250 Mg Tablet, #6 (Reported) Clindamycin HCl 300 Mg Capsule, 300 MG PO QID, #40 Prescribed by: CESAR WOODWARD on 01/08/17 014 Lidocaine HCl 15 Ml Solution, 1-2 ML MM Q 1-2 HOURS, #100 Prescribed by: CESAR WOODWARD on 01/08/17 014 Meclizine HCl 25 Mg Tablet, 25-50 MG PO Q6H, #30 Prescribed by: CESAR WOODWARD on 11/13/16 002 Scopolamine 1 Each Patch.td72, 1 EACH TD Q72 HOURS, #3 Prescribed by: CESAR WOODWARD on 11/13/16 002 Tramadol HCl 50 Mg Tablet, 50 MG PO Q4H, #20 Prescribed by: CESAR WOODWARD on 01/08/17 014 [Hydrocodone] , (Reported) Constitutional: chills, malaise EENTM: No ear discharge, No ear pain (ear fullness bilaterally) Respiratory: cough, No phlegm, No short of breath Cardiovascular: No chest pain, No Hx of Intervention Gastrointestinal: No abdominal pain, No constipation, No diarrhea, No nausea Genitourinary: No discharge, No dysuria Past Jihukum-Zlodhi-Pnwlwt Hx Patient Social History Alcohol Use: Occasionally Uses Recreational Drug Use: No Smoking Status: Current Everyday Smoker Type Used: Cigarettes 2nd Hand Smoke Exposure: Yes Recent Foreign Travel: No Contact w/Someone Who Travel: No Recent Infectious Disease Expo: No Recent Hopitalizations: No Physical Abuse: No Sexual Abuse: No Mistreated: No Fear: No Seasonal Allergies Seasonal Allergies: No Surgeries History of Surgeries: No Respiratory History of Respiratory Disorde: No Cardiovascular History of Cardiac Disorders: No Neurological History of Neurological Disord: No Reproductive System Hx Reproductive Disorders: No Genitourinary History of Genitourinary Disor: No Gastrointestinal History of Gastrointestinal Di: No Musculoskeletal History of Musculoskeletal Dis: No Endocrine History of Endocrine Disorders: No HEENT History of HEENT Disorders: Yes (CHRONIC DENTAL PROBLEMS--"BAD TEETH") Cancer History of Cancer: No Psychosocial History of Psychiatric Problem: No Suicide Risk Score: 0 Integumentary History of Skin or Integumenta: No Blood Transfusions History of Blood Disorders: No Adverse Reaction to a Blood Tr: No Physical Exam Vital Signs Vital Sign - Last 12Hours 03/31/17 21:01 Temp 98.2 Pulse 96 Resp 18 B/P (MAP) 150/95 (113) Pulse Ox 97 O2 Delivery Room Air Capillary Refill : Less Than 3 Seconds General Appearance: WD/WN, mild distress Eyes: Bilateral Eye Normal Inspection, Bilateral Eye PERRL, Bilateral Eye EOMI HEENT: PERRL/EOMI, other (bilateral TMs are clear with serous effusion and retraction. Canals clear.) Neck: non-tender, supple, normal inspection Respiratory: chest non-tender, lungs clear, normal breath sounds, no respiratory distress Cardiovascular: normal peripheral pulses, regular rate, rhythm Neurologic/Psychiatric: alert, normal mood/affect, oriented x 3 Skin: normal color, warm/dry Progress/Results/Core Measures Suspected Sepsis Recent Fever Within 48 Hours: No Infection Criteria Present: None New/Unexplained Altered Menta: No Sepsis Screen: No Definite Risk Sepsis Diagnosis: SIRS Temperature:98.2 Pulse: 96 Respiratory Rate: 18 Blood Pressure 150 /95 Mean: 113 Results/Orders Vital Signs/I&O Vital Sign - Last 12Hours 03/31/17 03/31/17 21:01 21:01 Temp 98.2 Pulse 96 Resp 18 B/P (MAP) 150/95 (113) Pulse Ox 97 O2 Delivery Room Air Capillary Refill : Less Than 3 Seconds Blood Pressure Mean: 113 Progress Note : Time: 21:22 Progress Note I would consider doing a rapid strep test but the patient is allergic to penicillins and she has tender maxillary sinuses bilaterally sore going to treat her with an azithromycin pack anyways. She has been given copious strategies to deal with the symptoms of her sinusitis/otitis media. Departure Impression Impression: Primary Impression: Maxillary sinusitis, acute Qualified Codes: J01.00 - Acute maxillary sinusitis, unspecified Additional Impressions: Otitis media, serous Qualified Codes: H65.03 - Acute serous otitis media, bilateral Viral upper respiratory tract infection Disposition: HOME, SELF-CARE Condition: Stable Departure-Patient Inst. Decision time for Depature: 21:24 Referrals: NO,LOCAL PHYSICIAN (PCP/Family) Primary Care Physician Patient Instructions: Sinusitis, Adult (DC) Add. Discharge Instructions: Drink lots of fluids and use 1000 g Tylenol every 8 hours and/or Naprosyn 2 capsules twice a day for the body aches or headaches. For the serous effusion of your ears you should take Flonase and apply 1 spray each nostril daily for 2 weeks to help open them up. If you need to stop the runny nose so you can work then you may take one tablet of chlorpheniramine 4 mg every 4 hours as needed. 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 If you're not seeing improvement by day 3 or 4 follow up with your primary care physician or urgent care. Typically this will last 7-10 days. Use vapor rubs, humidifiers and heating pads liberally. All discharge instructions reviewed with patient and/or family. Voiced understanding. Scripts Azithromycin (Azithromycin) 250 Mg Tablet 250 MG PO UD, #6 TAB TAKE 2 TABLETS ON DAY ONE THEN TAKE 1 TABLET DAILY FOR FOUR MORE DAYS Prov: KASSI CORONA 03/31/17 KASSI CORONA Mar 31, 2017 21:26
[2017-03-31 21:37] VITALS: BP 132/87
== END 2017-03-31 21:37 | disposition home or self-care (01) ==
LOC: EDUNIT# 20:40 → ER 20:41
DX: J01.00 Acute maxillary sinusitis, unspecified (principal); H65.93 Unspecified nonsuppurative otitis media, bilateral; F17.210 Nicotine dependence, cigarettes, uncomplicated
CPT/HCPCS: 99282

== ENCOUNTER → 2018-03-15 | Outpatient (CLI) | payer BC ==
[~2018-03-15] MED LIST changes: +AZIT250T12 PO; -SCOP1PAT TD; +SCOP1PAT11 TD
--- NOTE | 2018-03-15 16:11 | Diagnostic Imaging Report ---
PROCEDURE: US Non-ob pelvis comp/trans. TECHNIQUE: Multiple real-time grayscale images were obtained of the pelvis in various projections endovaginally. Transabdominal imaging was also performed. INDICATION: Perimenopausal bleeding. FINDINGS: The uterus measures 8.8 x 5.9 x 4.8 cm. Endometrium is 7 mm in thickness. There appears to be a fibroid in the fundus of the uterus measuring 3.6 x 3.2 x 2.7 cm. The right ovary measures 3.4 x 2.9 x 2.4 cm and the left ovary measures 3.4 x 2.2 x 1.8 cm. The right ovary does contain a cyst measuring 3.0 x 2.8 x 2.4 cm. There is blood flow to both ovaries. No free fluid is seen. IMPRESSION: 1. Uterine fibroid. 2. 3 cm right ovarian cyst. Dictated by: Dictated on workstation # [id number]
== END ==
LOC: RAD 14:45
PROVIDERS: ATTEND Family Medicine
DX: D25.9 Leiomyoma of uterus, unspecified (principal); N83.201 Unspecified ovarian cyst, right side
CPT/HCPCS: 76830; 76856

== ENCOUNTER 2018-06-19 03:53 | Emergency (ER) | payer BC ==
[~2018-06-19] VITALS: Ht 165.1 cm; Wt 99.8 kg
--- OUTSIDE RECORDS SUMMARY | 2018-06-19 03:56 | XMS REPORT | Continuity of Care Document ---
Author Author [facility] Organization [facility] Address Unknown Phone Unavailable Allergies Active Description Code Type Severity Reaction Onset Reported/Identified Relationship to Patient Clinical Status Yes ibuprofen [id number] Drug Allergy Mild N/A 08/25/2008 Yes Penicillins [id number] Drug Allergy Mild N/A 08/25/2008 Medications There [...] OTHER SPECIFIED DISORDERS OF TEETH AND S 03/31/2017 KASSI CORONA MD Ot F17.210 NICOTINE DEPENDENCE, CIGARETTES, UNCOMPL 03/31/2017 KASSI CORONA MD Ot H65.93 UNSPECIFIED NONSUPPURATIVE OTITIS MEDIA, 03/31/2017 CJ ROBERTSON, KASSI J Ot J01.00 ACUTE MAXILLARY SINUSITIS, UNSPECIFIED 03/31/2017 KASSI CORONA MD Ot R05 COUGH 04/04/2017 KASSI CORONA MD Ot F17.210 NICOTINE DEPENDENCE, CIGARETTES, UNCOMPL 04/04/2017 KASSI CORONA MD Ot H65.93 UNSPECIFIED NONSUPPURATIVE OTITIS MEDIA, 04/04/2017 KASSI CORONA MD Ot J01.00 ACUTE MAXILLARY SINUSITIS, UNSPECIFIED 04/04/2017 KASSI CORONA MD Ot R05 COUGH 03/16/2018 KATE DOE MD Ot D25.9 LEIOMYOMA OF UTERUS, UNSPECIFIED 03/16/2018 KATE DOE MD Ot N83.201 UNSPECIFIED OVARIAN CYST, RIGHT SIDE Procedures There is no data. Results Test [...] calculation of estimated glomerular filtration rate > NRG Serum or plasma glucose measurement (mass/volume) 96 [...] urinalysis with reflex to culture NO NRG CBC - 02/21/18 12:15 WHITE BLOOD CELL COUNT 9.6 Thousand/uL 3.8-10.8 RED BLOOD CELL COUNT 3.85 Million/uL 3.80-5.10 HEMOGLOBIN 11.7 g/dL 11.7-15.5 HEMATOCRIT 35.2 % 35.0-45.0 MCV 91.4 fL 80.0-100.0 MCH 30.4 pg 27.0-33.0 MCHC 33.2 g/dL 32.0-36.0 RDW 13.8 % 11.0-15.0 PLATELET COUNT 316 Thousand/uL 140-400 MPV 9.0 fL 7.5-12.5 ABSOLUTE NEUTROPHILS 6355 cells/uL 4879-9325 ABSOLUTE LYMPHOCYTES 2314 cells/uL 850-3900 ABSOLUTE MONOCYTES 605 cells/uL 200-950 ABSOLUTE EOSINOPHILS 278 cells/uL 15-500 ABSOLUTE BASOPHILS 48 cells/uL 0-200 NEUTROPHILS 66.2 % NRG LYMPHOCYTES 24.1 % NRG MONOCYTES 6.3 % NRG EOSINOPHILS 2.9 % NRG BASOPHILS 0.5 % NRG Encounters ACCT No. Visit Date/Time Discharge Status Pt. Type Provider Facility Loc./Unit Complaint [id number] 03/15/2018 14:45:00 03/15/2018 23:59:59 CLS Outpatient NADER ROBERTSON, KATE Giraldo [facility] RAD IRREGULAR MENTSRUAL BLEEDING [id number] 03/31/2017 20:41:00 03/31/2017 21:37:00 DIS Emergency KASSI CORONA MD [facility] ER COUGH,CONGESTION [id number] 01/08/2017 01:01:00 01/08/2017 02:07:00 DIS Emergency CESAR WOODWARD DO [facility] ER DENTAL PAIN [id number] 11/12/2016 22:51:00 11/13/2016 01:32:00 DIS Emergency CESAR WOODWARD DO [facility] ER DIZZINESS X4 DAYS [id number] 06/01/2016 21:18:00 06/01/2016 22:47:00 DIS Emergency NEHAL MENDES APRN [facility] ER COUGH,CONGESTION [id number] 05/10/2014 07:06:00 05/10/2014 10:28:00 DIS Emergency DIONI ULLOA MD [facility] ER FLU SYMPTOMS/POSS ALLERGIC REACTION [id number] 02/26/2010 17:34:00 Document Registration [id number] 02/21/2018 11:20:00 Document Registration
--- OUTSIDE RECORDS SUMMARY | 2018-06-19 03:56 | XMS REPORT ---
Author Author KATE DOE Organization [facility] [place] Address [address] [place] [address] Care Team Providers Care Oil Recovery Unit Operator Name Role Phone KATE DOE Unavailable PROBLEMS Type Condition ICD9-CM Code [id number] Code Onset Dates Condition Status SNOMED Code Problem Irregular menstrual bleeding N92.6 Active [id number] ALLERGIES Substance Reaction Event Type Date Status Tamiflu shortness of breath Drug Allergy Feb, Active Penicillin V Potassium itching Drug Allergy Feb, Active Motrin itching Drug Allergy Feb, Active ENCOUNTERS Encounter Location Date Diagnosis [facility] [place] [address] [facility] [id number] [address] Feb, Irregular menstrual bleeding N92.6 [facility] [place] [address] [facility] [id number] [address] Feb, Irregular menstrual bleeding N92.6 IMMUNIZATIONS No Known Immunizations SOCIAL HISTORY Never Assessed REASON FOR VISIT irregular bleeding f/u, patient states still b;leeding but is getting better-- brisa bolanos PLAN OF CARE Activity Details Follow Up 2 Weeks with Anastacia brush Ultrasound Reason: Pending Test Ultrasound : Pelvic, COMPLETE (REFLEX CPT-38178) VITAL SIGNS Height 5'5" in 2018-02-23 Weight 219.0 lbs 2018-02-23 Temperature 98.0 degrees Fahrenheit 2018-02-23 Heart Rate 76 bpm 2018-02-23 Respiratory Rate 18 2018-02-23 BMI 36.44 kg/m2 2018-02-23 Blood pressure systolic 120 mmHg 2018-02-23 Blood pressure diastolic 70 mmHg 2018-02-23 MEDICATIONS Medication Instructions Dosage Frequency Start Date End Date Duration Status tylenol by oral route 3 times a day 1 tablet 8h Active MedroxyPROGESTERone Acetate 10 MG Orally Once a day 1 tablet with food 24h Feb, Feb, 5 day(s) Active RESULTS No Results PROCEDURES No Known procedures INSTRUCTIONS MEDICATIONS ADMINISTERED No Known Medications MEDICAL (GENERAL) HISTORY Type Description Date Medical History n/a Surgical History No know Surgical history
[2018-06-19] MEDS ORDERED: LIDOCAINE 2% VISCOUS 15 ML UDC PO ONE (04:15)
[2018-06-19] MEDS ORDERED: KETOROLAC 60 MG/2 ML VIAL IM ONE (04:15)
[2018-06-19] MEDS ORDERED: hydrOXYzine (VISTARIL) 25 MG capsule/tablet PO ONE (04:15)
--- NOTE | 2018-06-19 04:17 | ED EENT ---
History of Present Illness General Chief Complaint: Dental Problems/Pain Stated Complaint: SOB/DIZZY Nursing Triage Note: pt presents to ed with complaints of r sided jqac/facial pain after having some tooth extractions 06/16/18. pt reports she has been taking aleve, tylenol, and a couple hydrocodone but has not had any relief Source: patient Exam Limitations: no limitations History of Present Illness Date Seen by Provider: Jun 19, 2018 Time Seen by Provider: 03:52 Initial Comments Patient presents to ER by private conveyance with chief complaint that Tuesday, 2 days ago she she went to the dentist for a dental extraction and ended up taking 2 teeth on her right upper molars. She said that she was sent home with nothing for pain. No antibiotics. No fevers or chills that she is feeling a lot of pain. She got called by the dentist and told the dentist at that time she was having a lot of pain but he told her maybe it would get better. It has not and now she's having a hard time sleeping tonight because of the pain. She's been using Tylenol and ibuprofen with minimal relief. She does not have any topical gels. She's getting very anxious and worried that the pain will not get better. She does not think she can make it through until the morning and calling EMS. She borrowed some hydrocodone from a family member and said that that made some improvement. Patient denies a history of asthma, COPD or lung disease. She does not follow routinely with a primary care doctor. Allergies and Home Medications Allergies Coded Allergies: Penicillins (Unverified Allergy, Mild, 08/25/08) ibuprofen (Unverified Allergy, Mild, 08/25/08) Home Medications Azithromycin 250 Mg Tablet, 250 MG PO UD TAKE 2 TABLETS ON DAY ONE THEN TAKE 1 TABLET DAILY FOR FOUR MORE DAYS Prescribed by: KASSI CORONA on 03/31/172125 Clindamycin HCl 300 Mg Capsule, 300 MG PO QID Prescribed by: CESAR WOODWARD on 01/08/17 014 Lidocaine HCl 15 Ml Solution, 1-2 ML MM Q 1-2 HOURS Prescribed by: CESAR WOODWARD on 01/08/17 014 Meclizine HCl 25 Mg Tablet, 25-50 MG PO Q6H Prescribed by: CESAR WOODWARD on 11/13/16 0025 Scopolamine 1 Each Patch.td72, 1 EACH TD Q72 HOURS Prescribed by: CESAR WOODWARD on 11/13/16 0025 Tramadol HCl 50 Mg Tablet, 50 MG PO Q4H Prescribed by: CESAR WOODWARD on 01/08/17 0142 Patient Home Medication List Home Medication List Reviewed: Yes Review of Systems Review of Systems Constitutional: No chills, No fever, No malaise Eyes: Denies Blindness, Denies Blurred Vision Ears: Denies Dizziness, Denies Pain Nose: denies clots, denies congestion Mouth: see HPI, pain, swelling; denies bloody discharge, denies clear discharge , denies purulent discharge Throat: denies pain, denies swelling Respiratory: No cough, No short of breath Cardiovascular: No chest pain, No edema Gastrointestinal: No abdominal pain, No constipation Past Vwsvays-Hmxpvr-Xhapqk Hx Patient Social History Alcohol Use: Occasionally Uses Recreational Drug Use: No Smoking Status: Former Smoker Type Used: Cigarettes Former Smoker, Quit: Nov 26, 2017 2nd Hand Smoke Exposure: Yes Recent Foreign Travel: No Contact w/Someone Who Travel: No Recent Infectious Disease Expo: No Recent Hopitalizations: No Physical Abuse: No Sexual Abuse: No Mistreated: No Fear: No Seasonal Allergies Seasonal Allergies: No Past Medical History Surgeries: Yes (dental) Respiratory: No Cardiac: No Neurological: No Reproductive Disorders: No Genitourinary: No Gastrointestinal: No Musculoskeletal: No Endocrine: No HEENT: Yes (CHRONIC DENTAL PROBLEMS--"BAD TEETH") Cancer: No Psychosocial: No Integumentary: No Blood Disorders: No Adverse Reaction/Blood Tranf: No Physical Exam Vital Signs Vital Signs - First Documented 06/19/18 04:02 Temp 97.0 Pulse 84 Resp 18 B/P (MAP) 178/96 (123) Pulse Ox 97 Height, Weight, BMI Height: 5'5.00" Weight: 220lbs. oz. 99.299832jf; BMI Method:Stated General Appearance: WD/WN, mild distress Eyes: bilateral eye normal inspection, bilateral eye PERRL, bilateral eye EOMI Ears: bilateral ear auricle normal, bilateral ear canal normal, bilateral ear TM normal Nose: normal inspection; No active bleeding Mouth/Throat: other (upper maxilla right 2 molars are recent extractions with mild erythema and swelling but no evidence of abscess or discharge.) Progress/Results/Core Measures Results/Orders My Orders Orders - KASSI CORONA Ketorolac Injection (Toradol Injection) (06/19/18 04:15) Lidocaine 2% Viscous 15 Ml (Xylocaine Vi (06/19/18 04:15) Hydroxyzine Cap/Tab (Vistaril) (06/19/18 04:15) Vital Signs/I&O 06/19/18 04:02 Temp 97.0 Pulse 84 Resp 18 B/P (MAP) 178/96 (123) Pulse Ox 97 Blood Pressure Mean: 123 Progress Progress Note : Time: 04:13 Progress Note The patient's experiencing quite a bit of pain from her sockets where she had recent extractions. Start with the Toradol shot, viscous lidocaine give her a prescription for some viscous lidocaine and if necessary we can send her home some hydrocodone as well. She needs to follow-up with the dentist today. We'll put her on some clindamycin. Departure Impression Primary Impression: Dental caries Additional Impression: Anxiety attack Disposition: HOME, SELF-CARE Condition: Stable Departure-Patient Inst. Decision time for Depature: 04:14 Referrals: NO,LOCAL PHYSICIAN (PCP/Family) Primary Care Physician Patient Instructions: Dental Pain (DC) Add. Discharge Instructions: Follow-up with your dentist today. Use Tylenol 1000 mg every 8 hours in addition to Naprosyn 2 tablets twice a day. You can use the hydrocodone one tablet every 6 hours as necessary for breakthrough pain. Apply a 1 g of lidocaine gel to some gauze and push it into the sockets and hold there for one hour every 2 hours as needed for pain relief. Start the clindamycin 3 capsules 3 times a day for one week. All discharge instructions reviewed with patient and/or family. Voiced understanding. Scripts Hydrocodone Bit/Acetaminophen (Hydrocodone/Acetaminophen 5/325mg Tablet) 1 Tab Tab 1-2 EACH PO Q6H PRN for BREAKTHROUGH PAIN MDD 10, #15 TAB 0 Refills Prov: KASSI CORONA 06/19/18 Clindamycin HCl (Clindamycin HCl) 150 Mg Capsule 450 MG PO TID for 7 Days, #63 CAP 0 Refills Prov: KASSI CORONA 06/19/18 KASSI CORONA Jun 19, 2018 04:17
[2018-06-19] MEDS ORDERED: ACHD5005 PO (04:18)
[2018-06-19] MEDS ORDERED: CLIN150C17 PO (04:18)
[2018-06-19 04:40] VITALS: BP 150/82
== END 2018-06-19 04:40 | disposition home or self-care (01) ==
LOC: ER 03:53 → EDUNIT# 03:53 → ER 04:40
DX: K02.9 Dental caries, unspecified (principal); F41.0 Panic disorder [episodic paroxysmal anxiety]; Z88.0 Allergy status to penicillin; Z88.6 Allergy status to analgesic agent; Z87.891 Personal history of nicotine dependence; Z98.890 Other specified postprocedural states
CPT/HCPCS: 99284

== ENCOUNTER 2019-04-15 18:25 | Emergency (ER) | payer BC ==
[~2019-04-15] VITALS: Ht 167.7 cm; Wt 106.6 kg
[~2019-04-15 18:25] MED LIST changes: +ACHD5005 PO; +CLIN150C17 PO
[2019-04-15] MEDS ORDERED: ASPIRIN 81 MG CHEW (CHILDREN'S ASA) ONE (19:26)
[2019-04-15] MEDS ORDERED: LACTATED RINGERS 1,000 ML IV ONE (19:29)
[2019-04-15] MEDS ORDERED: ASPIRIN 81 MG CHEW (CHILDREN'S ASA) PO ONE (19:30)
[2019-04-15 19:36] LABS: BASOPHILS % (AUTO) 0 % (0-10); EOSINOPHILS # (AUTO) 0.4 10^3/uL (0.0-0.3); EOSINOPHILS % (AUTO) 3 % (0-10); HEMATOCRIT 39 % (35-52); HEMOGLOBIN 12.9 G/DL (11.5-16.0); LYMPHOCYTES # (AUTO) 2.4 X 10^3 (1.0-4.0); LYMPHOCYTES % (AUTO) 20 % (12-44); MEAN CORPUSCULAR HEMOGLOBIN 29 PG (25-34); MEAN CORPUSCULAR HGB CONC 33 G/DL (32-36); MEAN CORPUSCULAR VOLUME 89 FL (80-99); MEAN PLATELET VOLUME 8.9 FL (7.4-10.4); MONOCYTES # (AUTO) 0.8 X 10^3 (0.0-1.0); MONOCYTES % (AUTO) 6 % (0-12); NEUTROPHILS # (AUTO) 8.3 X 10^3 (1.8-7.8); NEUTROPHILS % (AUTO) 70 % (42-75); PLATELET COUNT 362 10^3/uL (130-400); RED CELL DISTRIBUTION WIDTH 15.3 % (10.0-14.5); WHITE BLOOD COUNT 11.8 10^3/uL (4.3-11.0)
[2019-04-15 19:46] LABS: PROTHROMBIN TIME PATIENT 13.6 SEC (12.2-14.7)
--- NOTE | 2019-04-15 19:53 | ED Chest Pain ---
General Chief Complaint: Chest Pain Stated Complaint: ELEV BP/SOB/POSS ANXIETY ATTACK PER EMS Source: patient Exam Limitations: no limitations (LIDA LARKIN,MED STUDENT) History of Present Illness Date Seen by Provider: Apr 15, 2019 Time Seen by Provider: 19:39 Initial Comments Pt presents to ED via EMS with CC of chest pain beginning two hours ago. Pt was on the phone with her son, belched, and experienced a bitter taste in the back of her throat. Pt then began experiencing shortness of air, cough, chest tightness and nausea. States chest tightness is substernal, does not radiate and has almost completely resolved. Denies diaphoresis, vomiting. Approximately 1 year ago pt experienced similar chest pain that was attributed to a panic attack. She was given CPAP machine but denies using it. Timing/Duration: 1-3 hours Severity/Quality: severe, burning, tightness Location: substernal, central Radiation: no radiation Activities at Onset: none Prior CP/Workup: angina ASA po DOCENT COORDINATOR: No NTG SL DOCENT COORDINATOR: No Associated Symptoms: No abdominal pain, No back pain, No diaphoresis, No dizziness, No edema, No fatigue, No fever/chills, No headache; heartburn, nausea/vomiting; No rash; shortness of breath; No swelling/lump in chest (LIDA LARKIN,MED STUDENT) Timing/Duration: 1-3 hours, gone now Severity/Quality: severe, burning Location: substernal, central Radiation: no radiation Activities at Onset: none (CHOLO WALTER MD) Allergies and Home Medications Allergies Coded Allergies: Penicillins (Unverified Allergy, Mild, 08/25/08) ibuprofen (Unverified Allergy, Mild, 08/25/08) Home Medications Azithromycin 250 Mg Tablet, 250 MG PO UD TAKE 2 TABLETS ON DAY ONE THEN TAKE 1 TABLET DAILY FOR FOUR MORE DAYS Prescribed by: KASSI CORONA on 03/31/172125 Clindamycin HCl 300 Mg Capsule, 300 MG PO QID Prescribed by: CESAR WOODWARD on 01/08/17 0142 Clindamycin HCl 150 Mg Capsule, 450 MG PO TID Prescribed by: KASSI CORONA on 06/19/18 0418 Hydrocodone Bit/Acetaminophen 1 Tab Tab, 1-2 EACH PO Q6H PRN for BREAKTHROUGH PAIN Prescribed by: KASSI CORONA on 06/19/18417 Lidocaine HCl 15 Ml Solution, 1-2 ML MM Q 1-2 HOURS Prescribed by: CESAR WOODWARD on 01/08/17141 Meclizine HCl 25 Mg Tablet, 25-50 MG PO Q6H Prescribed by: CESAR WOODWARD on 11/13/1624 Scopolamine 1 Each Patch.td72, 1 EACH TD Q72 HOURS Prescribed by: CESAR WOODWARD on 11/13/1624 Tramadol HCl 50 Mg Tablet, 50 MG PO Q4H Prescribed by: CESAR WOODWARD on 01/08/17141 Patient Home Medication List Home Medication List Reviewed: Yes (LIDA LARKIN MED STUDENT) Home Medication List Reviewed: Yes (CHOLO WALTER MD) Review of Systems Review of Systems Constitutional: No chills, No fever, No malaise EENTM: No Eye Pain, No Ear Pain, No Mouth Pain, No Nose Pain, No Throat Pain Respiratory: See HPI, Cough, Shortness of Air Cardiovascular: See HPI, Chest Pain; Denies Edema, Denies Irregular Heart Rate, Denies Lightheadedness Gastrointestinal: Denies Abdominal Pain, Denies Constipated, Denies Diarrhea; Nausea; Denies Vomiting Genitourinary: Denies Burning, Denies Discharge, Denies Pain Musculoskeletal: No back pain, No joint pain Skin: No lesions, No lumps, No rash Psychiatric/Neurological: Denies Anxiety, Denies Depressed, Denies Headache Endocrine: Denies Intolerance to Cold, Denies Intolerance to Heat Hematologic/Lymphatic: Denies Anemia, Denies Easy Bruising (LIDA LARKIN MED STUDENT) All Other Systems Reviewed Negative Unless Noted: Yes (CHOLO WALTER MD) Past Ntyyibc-Qxotzq-Dibrdy Hx Past Med/Social Hx: Reviewed Nursing Past Med/Soc Hx (CHOLO WALTER MD) Patient Social History Type Used: Cigarettes Former Smoker, Quit: Nov 26, 2017 2nd Hand Smoke Exposure: Yes Recent Foreign Travel: No Contact w/Someone Who Travel: No Recent Hopitalizations: No (LIDA LARKIN MED STUDENT) Seasonal Allergies Seasonal Allergies: No (LIDA LARKIN MED STUDENT) Past Medical History Surgeries: Yes (dental) Respiratory: No Cardiac: No Neurological: No Reproductive Disorders: No Genitourinary: No Gastrointestinal: No Musculoskeletal: No Endocrine: No HEENT: Yes (CHRONIC DENTAL PROBLEMS--"BAD TEETH") Cancer: No Psychosocial: No Integumentary: No Blood Disorders: No Adverse Reaction/Blood Tranf: No (LIDA LARKIN,JASON STUDENT) Family Medical History Reviewed Nursing Family Hx (CHOLO WALTER MD) Asthma (mother) (LIDA LARKIN,JASON STUDENT) Physical Exam Vital Signs Vital Signs - First Documented 04/15/19 19:05 Temp 36.8 Pulse 112 Resp 11 B/P (MAP) 152/98 (116) Pulse Ox 96 O2 Delivery Room Air (CHOLO WALTER MD) Vital Signs Capillary Refill : (LIDA LARKIN MED STUDENT) Height, Weight, BMI Height: 5'5.00" Weight: 220lbs. oz. 99.789902hg; BMI Method:Stated General Appearance: No Apparent Distress, WD/WN HEENT: PERRL/EOMI, TMs Normal, Normal ENT Inspection, Pharynx Normal Neck: Non Tender, Supple Respiratory: Chest Non Tender, Lungs Clear, Normal Breath Sounds, No Accessory Muscle Use, No Respiratory Distress Cardiovascular: No Edema, No Gallop, No Murmur, Normal Peripheral Pulses, Tachycardia Gastrointestinal: Non Tender, Soft Extremity: No Calf Tenderness, No Pedal Edema Neurologic/Psychiatric: Alert, Oriented x3, Normal Mood/Affect Skin: Normal Color, Warm/Dry Lymphatic: No Adenopathy (supra/infraclavicular, A/P cervical ) (LIDA LARKIN,MED STUDENT) General Appearance: No Apparent Distress, WD/WN HEENT: PERRL/EOMI, Pharynx Normal Neck: Non Tender, Supple Respiratory: Lungs Clear, Normal Breath Sounds Cardiovascular: No Edema, No Murmur, Normal Peripheral Pulses, Tachycardia Gastrointestinal: Non Tender, Soft Extremity: Non Tender, No Calf Tenderness, No Pedal Edema Neurologic/Psychiatric: Alert, Oriented x3 Skin: Normal Color, Warm/Dry (CHOLO WALTER MD) Progress/Results/Core Measures Results/Orders Lab Results Laboratory Tests Test 04/15/19 19:30 04/15/19 21:12 Range/Units White Blood Count 11.8 H 4.3-11.0 10^3/uL Red Blood Count 4.41 4.35-5.85 10^6/uL Hemoglobin 12.9 11.5-16.0 G/DL Hematocrit 39 35-52 % Mean Corpuscular Volume 89 80-99 FL Mean Corpuscular Hemoglobin 29 25-34 PG Mean Corpuscular Hemoglobin Concent 33 32-36 G/DL Red Cell Distribution Width 15.3 H 10.0-14.5 % Platelet Count 362 130-400 10^3/uL Mean Platelet Volume 8.9 7.4-10.4 FL Neutrophils (%) (Auto) 70 42-75 % Lymphocytes (%) (Auto) 20 12-44 % Monocytes (%) (Auto) 6 0-12 % Eosinophils (%) (Auto) 3 0-10 % Basophils (%) (Auto) 0 0-10 % Neutrophils # (Auto) 8.3 H 1.8-7.8 X 10^3 Lymphocytes # (Auto) 2.4 1.0-4.0 X 10^3 Monocytes # (Auto) 0.8 0.0-1.0 X 10^3 Eosinophils # (Auto) 0.4 H 0.0-0.3 10^3/uL Basophils # (Auto) 0.0 0.0-0.1 10^3/uL Prothrombin Time 13.6 12.2-14.7 SEC INR Comment 1.0 0.8-1.4 Activated Partial Thromboplast Time 28 24-35 SEC D-Dimer 0.25 0.00-0.49 UG/ML Sodium Level 137 135-145 MMOL/L Potassium Level 4.2 3.6-5.0 MMOL/L Chloride Level 101 98-107 MMOL/L Carbon Dioxide Level 21 21-32 MMOL/L Anion Gap 15 H 5-14 MMOL/L Blood Urea Nitrogen 9 7-18 MG/DL Creatinine 0.77 0.60-1.30 MG/DL Estimat Glomerular Filtration Rate > 60 BUN/Creatinine Ratio 12 Glucose Level 99 70-105 MG/DL Calcium Level 9.3 8.5-10.1 MG/DL Corrected Calcium 9.1 8.5-10.1 MG/DL Magnesium Level 2.1 1.6-2.4 MG/DL Total Bilirubin 0.2 0.1-1.0 MG/DL Aspartate Amino Transf (AST/SGOT) 31 5-34 U/L Alanine Aminotransferase (ALT/SGPT) 30 0-55 U/L Alkaline Phosphatase 127 40-136 U/L Myoglobin 23.2 10.0-92.0 NG/ML Troponin I < 0.028 < 0.028 <0.028 NG/ML Total Protein 8.4 H 6.4-8.2 GM/DL Albumin 4.2 3.2-4.5 GM/DL (CHOLO WALTER MD) My Orders Orders - CHOLO WALTER MD Cbc With Automated Diff (04/15/19) Magnesium (04/15/19) Chest 1 View, Ap/Pa Only (04/15/19) Ekg Tracing (04/15/19) Comprehensive Metabolic Panel (04/15/19) Myoglobin Serum (04/15/19) Protime With Inr (04/15/19) Partial Thromboplastin Time (04/15/19:) O2 (04/15/19:) Monitor-Rhythm Ecg Trace Only (04/15/19) Lipid Panel (04/16/19 06:00) Ed Iv/Invasive Line Start (04/15/19:) Fibrin Degradation Products (04/15/19:) Troponin I (04/15/19:) Aspirin Chewable Tablet (Baby Aspirin Ch (04/15/19 19:30) Lactated Ringers (Lr 1000 Ml Iv Solution (04/15/19 19:29) Aspirin Chewable Tablet (Baby Aspirin Ch (04/15/19 19:26) Troponin I (04/15/19 21:09) Famotidine Injection (Pepcid Injection) (04/15/19 21:09) (CHOLO WALTER MD) Medications Given in ED Current Medications Medications Dose Ordered Sig/Jori Route Start Time Stop Time Status Last Admin Dose Admin Aspirin 324 mg ONCE ONCE PO 04/15/19 19:30 04/15/19 19:31 DC 04/15/19 19:32 324 MG Lactated Ringer's 1,000 ml @ 0 mls/hr Q0M ONCE IV 04/15/19 19:29 04/15/19 19:30 DC 04/15/19 19:34 0 MLS/HR (CHOLO WALTER MD) Vital Signs/I&O 04/15/19 04/15/19 19:05 19:05 Temp 36.8 Pulse 112 Resp 11 B/P (MAP) 152/98 (116) Pulse Ox 96 O2 Delivery Room Air (CHOLO WALTER MD) Progress Progress Note : Time: 19:57 Progress Note Seen and evaluated. Beginning cardiac work-up with EKG, CMP, CBC, PT/INR, CXR, troponin, BNP, Mg, myoglobin, and lipid panel. Administering 325mg ASA. (LIDA LARKIN,MED STUDENT) Progress Note : Progress Note I have seen and evaluated the patient and agree with above except as indicated. I have directed the plan of care. Patient is here with acute onset of central epigastric and central chest burning after burping while talking on the phone. Became quite significant and EMS was called. Overall doing better now. Had an episode similar last year. Pain was brief. Denies nausea, vomiting, sweating, fevers or chills. Evaluation as above. Chest pain protocol initiated. She did receive aspirin 324 mg by mouth. Monitor patient. 2024: Patient doing much better. All findings are negative. THis does seem to be more related to reflux symptoms. I did discuss with her at length regarding her CPAP use and have highly encouraged her to use that for her on medical health. She verbalizes understanding. She states that she did have some problems tolerating the mask but will retry it and also will discuss this with her physician to see if there is may be another option if she can't burn to tolerate the mask. Monitor patient. 2109: Repeat troponin ordered. Pepcid 20 mg IV for persistent burping. Pain is still gone. The troponin is negative, patient will go home. I did discuss with her about following up with her doctor and I will send a copy of the chart to Dr. Sheikh. Monitor patient. 2141: Repeat troponin negative. Discharged home with return precautions. Patient verbalize understanding in structions and agreement with plan (CHOLO WALTER MD) Initial ECG Impression Date: Apr 15, 2019 Initial ECG Impression Time: 19:16 Initial ECG Rate: 106 Initial ECG Rhythm: S.Tach Comment Sinus tachycardia with normal axis. No evidence of ST elevation [place]. Similar but faster rate to previous of 11/12/16. Interpreted by me. (CHOLO WALTER MD) Diagnostic Imaging Diagonstic Imaging: Xray Plain Films/CT/US/NM/MRI: chest Comments [facility]. [place], [place] NAME: DAYO RIVERA [facility] REC#: [id number] PT STATUS: REG ER : 1970 PHYSICIAN: CHOLO WALTER MD ADMIT DATE: 04/15/19/ER Signed Date of Exam:04/15/19 CHEST 1 VIEW, AP/PA ONLY INDICATION: Chest pain COMPARISON: 06/01/2016. FINDINGS: Frontal view of the chest demonstrates clear lungs bilaterally. The heart size is normal. There is no pneumothorax. Osseous structures are normal. IMPRESSION: No acute findings. Normal chest. Dictated by: Dictated on workstation # [id number] Dict: 04/15/191950 Trans: 04/15/191950 [facility] [id number] Interpreted by: SANTY GRACIA Electronically signed by: SANTY GRACIA 04/15/191950 (LIDA LARKIN,MED STUDENT) Diagonstic Imaging: Xray Plain Films/CT/US/NM/MRI: chest (CHOLO WALTER MD) Departure Impression Primary Impression: Chest pain Qualified Codes: R07.9 - Chest pain, unspecified Additional Impression: Gastroesophageal reflux disease Qualified Codes: K21.9 - Gastro-esophageal reflux disease without esophagitis Disposition: 01 HOME, SELF-CARE Condition: Improved Departure-Patient Inst. Decision time for Depature: 21:10 (CHOLO WALTER MD) Referrals: NO,LOCAL PHYSICIAN (PCP/Family) Primary Care Physician Patient Instructions: Chest Pain (DC), Acid Reflux (Gastroesophageal Reflux Disease), Adult (DC) Add. Discharge Instructions: All discharge instructions reviewed with patient and/or family. Voiced understanding. You may take [id number]-[id number] Pepcid or the generic famotidine 20 mg once or twice daily as needed for stomach upset. You may take [id number]-sxghqnq omeprazole 20 mg daily and you may purchase this in 2 weeks, for week or 6 week packs. You may take this for up to 6 weeks. Discuss with your doctor as well. Return for worse pain, fever, vomiting, weakness, breathing problems or other c oncerns as needed. I highly encouraged you to use your CPAP at night. Discussed this with your doctor as well Copy Copies To 1: IZABELLA SHEIKH MD, DREW,MED STUDENT Apr 15, 2019 19:53 CHOLO WALTER MD Apr 15, 2019 20:30
[2019-04-15 19:59] LABS: ALANINE AMINOTRANSFERASE 30 U/L (0-55); ALBUMIN 4.2 GM/DL (3.2-4.5); ALKALINE PHOSPHATASE 127 U/L (40-136); BILIRUBIN,TOTAL 0.2 MG/DL (0.1-1.0); BUN/CREATININE RATIO 12; CALCIUM 9.3 MG/DL (8.5-10.1); CARBON DIOXIDE 21 MMOL/L (21-32); CHLORIDE 101 MMOL/L (98-107); CREATININE SERUM 0.77 MG/DL (0.60-1.30); GFR ESTIMATED > 60; GLUCOSE 99 MG/DL (70-105); MAGNESIUM 2.1 MG/DL (1.6-2.4); POTASSIUM 4.2 MMOL/L (3.6-5.0); SODIUM 137 MMOL/L (135-145); TOTAL PROTEIN 8.4 GM/DL (6.4-8.2)
[2019-04-15] MEDS ORDERED: FAMOTIDINE 20MG/2ML IV (PEPCID) IV STA (21:09)
[2019-04-15 21:47] VITALS: BP 144/86
== END 2019-04-15 21:55 | disposition home or self-care (01) ==
LOC: EDUNIT# 18:25 → ER 18:26
DX: K21.9 Gastro-esophageal reflux disease without esophagitis (principal); Z88.0 Allergy status to penicillin; Z88.6 Allergy status to analgesic agent; Z87.891 Personal history of nicotine dependence; Z77.22 Contact with and (suspected) exposure to environmental tobacco smoke (acute) (chronic)
CPT/HCPCS: 36415; 71045; 80053; 83735; 83874; 84484; 85025; 85379; 85610; 85730; 93005; 93041; 96361; 96374

== ENCOUNTER 2019-04-20 14:16 | Emergency (ER) | payer BC ==
[~2019-04-20] VITALS: Ht 165 cm; Wt 108.2 kg
--- NOTE | 2019-04-20 15:14 | ED General ---
General Chief Complaint: Dizziness/Syncope Stated Complaint: LIGHT HEADED Nursing Triage Note: COMPLAINS OF BEING LIGHT HEADED AND DIZZY FOR THE LAST HOUR. STATES SHE FELT IT COMING ON THIS AM BUT IT WENT AWAY. WAS SEEN HERE THIS WEEK FOR RESP ISSUES. COMPLAINS OF WAKING UP WITH A HEADACHE THIS AM. Nursing Sepsis Screen: No Definite Risk Source of Information: Patient Exam Limitations: No Limitations History of Present Illness Date Seen by Provider: Apr 20, 2019 Time Seen by Provider: 15:10 Initial Comments This 49-year-old white female presents with a complaint of dizziness that began at home when she laid down. They dizziness spontaneously abated and the patient now feels lightheaded. He has had a similar episode in the past. The patient was asked to employ CPAP following that evaluation which she has not used. Patient denies fever or chill, headache stiff neck or photophobia, nausea vomiting or diarrhea, dysuria frequency or flank pain, lateralized localizing neurologic complaints, new medication, or rash. Allergies and Home Medications Allergies Coded Allergies: oseltamivir (Verified Allergy, Severe, EDEMA, SOA, 04/20/19) Penicillins (Unverified Allergy, Mild, 08/25/08) ibuprofen (Unverified Allergy, Mild, 08/25/08) Home Medications Azithromycin 250 Mg Tablet, 250 MG PO UD TAKE 2 TABLETS ON DAY ONE THEN TAKE 1 TABLET DAILY FOR FOUR MORE DAYS Prescribed by: KASSI CORONA on 03/31/172125 Clindamycin HCl 300 Mg Capsule, 300 MG PO QID Prescribed by: CESAR WOODWARD on 01/08/17141 Clindamycin HCl 150 Mg Capsule, 450 MG PO TID Prescribed by: KASSI CORONA on 06/19/18417 Hydrocodone Bit/Acetaminophen 1 Tab Tab, 1-2 EACH PO Q6H PRN for BREAKTHROUGH PAIN Prescribed by: KASSI CORONA on 06/19/18417 Lidocaine HCl 15 Ml Solution, 1-2 ML MM Q 1-2 HOURS Prescribed by: CESAR WOODWARD on 01/08/17141 Meclizine HCl 25 Mg Tablet, 25-50 MG PO Q6H Prescribed by: CESAR WOODWARD on 11/13/1624 Scopolamine 1 Each Patch.td72, 1 EACH TD Q72 HOURS Prescribed by: CESAR WOODWARD on 11/13/1624 Tramadol HCl 50 Mg Tablet, 50 MG PO Q4H Prescribed by: CESAR WOODWARD on 01/08/17 0142 Patient Home Medication List Home Medication List Reviewed: Yes Review of Systems Review of Systems Constitutional: No chills; dizziness; No fever EENTM: no symptoms reported; No blurred vision, No vision loss, No throat pain Respiratory: No cough Cardiovascular: No chest pain, No Hx of Intervention, No palpitations Gastrointestinal: No abdominal pain, No nausea, No vomiting Genitourinary: no symptoms reported Musculoskeletal: no symptoms reported Skin: no symptoms reported Psychiatric/Neurological: No Symptoms Reported Hematologic/Lymphatic: No Symptoms Reported Immunological/Allergic: no symptoms reported Past Lhmvjvo-Redfcs-Xbouxe Hx Past Med/Social Hx: Reviewed Nursing Past Med/Soc Hx Patient Social History Alcohol Use: Occasionally Uses Recreational Drug Use: No Smoking Status: Former Smoker Type Used: Cigarettes Former Smoker, Quit: Nov 26, 2017 2nd Hand Smoke Exposure: Yes Recent Foreign Travel: No Contact w/Someone Who Travel: No Recent Infectious Disease Expo: No Recent Hopitalizations: No Seasonal Allergies Seasonal Allergies: No Past Medical History Surgeries: Yes (dental) Respiratory: No Cardiac: No Neurological: No Reproductive Disorders: No Genitourinary: No Gastrointestinal: No Musculoskeletal: No Endocrine: No HEENT: Yes (CHRONIC DENTAL PROBLEMS--"BAD TEETH") Cancer: No Psychosocial: No Integumentary: No Blood Disorders: No Adverse Reaction/Blood Tranf: No Family Medical History Asthma Physical Exam Vital Signs Vital Signs - First Documented 04/20/19 14:23 Temp 36.4 Pulse 99 Resp 18 B/P (MAP) 179/106 (130) Pulse Ox 97 O2 Delivery Room Air Capillary Refill : Less Than 3 Seconds Height, Weight, BMI Height: 5'5.00" Weight: 220lbs. oz. 99.055459iv; 39.00 BMI Method:Stated General Appearance: No Apparent Distress, WD/WN Eyes: Bilateral Eye Normal Inspection HEENT: PERRL/EOMI, Normal ENT Inspection Neck: Normal Inspection, Non Tender, Supple Respiratory: Lungs Clear Cardiovascular: Regular Rate, Rhythm, No Murmur Gastrointestinal: Normal Bowel Sounds, Non Tender, Soft Extremity: Normal Inspection, Normal Range of Motion Neurologic/Psychiatric: Alert, Oriented x3, No Motor/Sensory Deficits Skin: Normal Color, Warm/Dry Progress/Results/Core Measures Suspected Sepsis Recent Fever Within 48 Hours: No Infection Criteria Present: None New/Unexplained Altered Menta: No Sepsis Screen: No Definite Risk SIRS Temperature: Pulse: 99 Respiratory Rate: 18 Laboratory Tests 04/20/19 15:05: White Blood Count 10.3 Blood Pressure 179 /106 Mean: 130 Laboratory Tests 04/20/19 15:05: Creatinine 0.73, Platelet Count 351, Total Bilirubin 0.2 Results/Orders Lab Results Laboratory Tests Test 04/20/19 15:05 04/20/19 15:41 Range/Units White Blood Count 10.3 4.3-11.0 10^3/uL Red Blood Count 4.16 L 4.35-5.85 10^6/uL Hemoglobin 12.2 11.5-16.0 G/DL Hematocrit 38 35-52 % Mean Corpuscular Volume 91 80-99 FL Mean Corpuscular Hemoglobin 29 25-34 PG Mean Corpuscular Hemoglobin Concent 32 32-36 G/DL Red Cell Distribution Width 15.7 H 10.0-14.5 % Platelet Count 351 130-400 10^3/uL Mean Platelet Volume 9.2 7.4-10.4 FL Neutrophils (%) (Auto) 65 42-75 % Lymphocytes (%) (Auto) 22 12-44 % Monocytes (%) (Auto) 8 0-12 % Eosinophils (%) (Auto) 5 0-10 % Basophils (%) (Auto) 0 0-10 % Neutrophils # (Auto) 6.7 1.8-7.8 X 10^3 Lymphocytes # (Auto) 2.3 1.0-4.0 X 10^3 Monocytes # (Auto) 0.8 0.0-1.0 X 10^3 Eosinophils # (Auto) 0.5 H 0.0-0.3 10^3/uL Basophils # (Auto) 0.0 0.0-0.1 10^3/uL Sodium Level 137 135-145 MMOL/L Potassium Level 4.3 3.6-5.0 MMOL/L Chloride Level 103 98-107 MMOL/L Carbon Dioxide Level 22 21-32 MMOL/L Anion Gap 12 5-14 MMOL/L Blood Urea Nitrogen 7 7-18 MG/DL Creatinine 0.73 0.60-1.30 MG/DL Estimat Glomerular Filtration Rate > 60 BUN/Creatinine Ratio 10 Glucose Level 140 H 70-105 MG/DL Calcium Level 9.2 8.5-10.1 MG/DL Corrected Calcium 9.2 8.5-10.1 MG/DL Total Bilirubin 0.2 0.1-1.0 MG/DL Aspartate Amino Transf (AST/SGOT) 38 H 5-34 U/L Alanine Aminotransferase (ALT/SGPT) 36 0-55 U/L Alkaline Phosphatase 133 40-136 U/L Troponin I < 0.028 <0.028 NG/ML Total Protein 8.1 6.4-8.2 GM/DL Albumin 4.0 3.2-4.5 GM/DL Urine Color YELLOW Urine Clarity CLEAR Urine pH 5.5 5-9 Urine Specific [place] >=1.030 1.016-1.022 Urine Protein NEGATIVE NEGATIVE Urine Glucose (UA) NEGATIVE NEGATIVE Urine Ketones NEGATIVE NEGATIVE Urine Nitrite NEGATIVE NEGATIVE Urine Bilirubin NEGATIVE NEGATIVE Urine Urobilinogen 0.2 < = 1.0 MG/DL Urine Leukocyte Esterase NEGATIVE NEGATIVE Urine RBC (Auto) NEGATIVE NEGATIVE Urine RBC NONE /HPF Urine WBC NONE /HPF Urine Crystals PRESENT H /LPF Urine Amorphous Sediment FEW ABISAI URATES H /LPF Urine Bacteria NEGATIVE /HPF Urine Casts NONE /LPF Urine Mucus NEGATIVE /LPF Urine Culture Indicated NO My Orders Orders - MEGGAN SYKES MD Cbc With Automated Diff (04/20/19 15:07) Comprehensive Metabolic Panel (04/20/19 15:07) Ua Culture If Indicated (04/20/19 15:07) Ct Head Wo (04/20/19 15:07) Ekg Tracing (04/20/19 15:07) Troponin I (04/20/19 15:07) Ns Iv 1000 Ml (Sodium Chloride 0.9%) (04/20/19 15:15) Vital Signs/I&O 04/20/19 14:23 Temp 36.4 Pulse 99 Resp 18 B/P (MAP) 179/106 (130) Pulse Ox 97 O2 Delivery Room Air Capillary Refill : Less Than 3 Seconds Blood Pressure Mean: 130 Progress Note : Time: 16:11 Progress Note Patient's laboratory and radiographic evaluation including CT of the head were all unremarkable. Patient's EKG demonstrated sinus rhythm without an acute current of injury or dysrhythmia. The patient's symptoms had spontaneously abated while in the emergency department other than the patient complained of slight lightheadedness. Further history from the patient revealed that she had a similar episode in the past that was benign in nature. I asked that she follow up with Dr. Galdino Sheikh on Tuesday. I invited her to return to the emergency department she had a further problems or questions. Departure Impression Primary Impression: Dizziness Disposition: HOME, SELF-CARE Condition: Improved Departure-Patient Inst. Decision time for Depature: 16:12 Referrals: GALDINO SHEIKH MD (PCP/Family) Primary Care Physician Patient Instructions: Dizziness, Nonvertigo, (DC) Add. Discharge Instructions: Follow Dr. Mela Sheikh on Tuesday. Rest at home this . Return if any problems or questions. All discharge instructions reviewed with patient and/or family. Voiced understanding. MEGGAN SYKES MD Apr 20, 2019 15:14
[2019-04-20 15:15] LABS: BASOPHILS % (AUTO) 0 % (0-10); EOSINOPHILS # (AUTO) 0.5 10^3/uL (0.0-0.3); EOSINOPHILS % (AUTO) 5 % (0-10); HEMATOCRIT 38 % (35-52); HEMOGLOBIN 12.2 G/DL (11.5-16.0); LYMPHOCYTES # (AUTO) 2.3 X 10^3 (1.0-4.0); LYMPHOCYTES % (AUTO) 22 % (12-44); MEAN CORPUSCULAR HEMOGLOBIN 29 PG (25-34); MEAN CORPUSCULAR HGB CONC 32 G/DL (32-36); MEAN CORPUSCULAR VOLUME 91 FL (80-99); MEAN PLATELET VOLUME 9.2 FL (7.4-10.4); MONOCYTES # (AUTO) 0.8 X 10^3 (0.0-1.0); MONOCYTES % (AUTO) 8 % (0-12); NEUTROPHILS # (AUTO) 6.7 X 10^3 (1.8-7.8); NEUTROPHILS % (AUTO) 65 % (42-75); PLATELET COUNT 351 10^3/uL (130-400); RED CELL DISTRIBUTION WIDTH 15.7 % (10.0-14.5); WHITE BLOOD COUNT 10.3 10^3/uL (4.3-11.0)
[2019-04-20] MEDS ORDERED: NS IV 1000 ML 1,000 ML IV SCH (15:15)
[2019-04-20 15:36] LABS: ALANINE AMINOTRANSFERASE 36 U/L (0-55); ALKALINE PHOSPHATASE 133 U/L (40-136); BILIRUBIN,TOTAL 0.2 MG/DL (0.1-1.0); BUN/CREATININE RATIO 10; CALCIUM 9.2 MG/DL (8.5-10.1); CARBON DIOXIDE 22 MMOL/L (21-32); CHLORIDE 103 MMOL/L (98-107); CREATININE SERUM 0.73 MG/DL (0.60-1.30); GFR ESTIMATED > 60; GLUCOSE 140 MG/DL (70-105); POTASSIUM 4.3 MMOL/L (3.6-5.0); SODIUM 137 MMOL/L (135-145); TOTAL PROTEIN 8.1 GM/DL (6.4-8.2)
[2019-04-20 15:46] LABS: BILIRUBIN,URINE NEGATIVE (NEGATIVE); CLARITY,URINE CLEAR; COLOR,URINE YELLOW; GLUCOSE, URINE (UA) NEGATIVE (NEGATIVE); KETONES,URINE NEGATIVE (NEGATIVE); LEUKOCYTE ESTERASE ,URINE NEGATIVE (NEGATIVE); NITRITE,URINE NEGATIVE (NEGATIVE); PH,URINE 5.5 (5-9); PROTEIN,URINE NEGATIVE (NEGATIVE)
[2019-04-20 15:56] LABS: AMORPHOUS SEDIMENT,UR FEW AMOR URATES /LPF; BACTERIA,URINE NEGATIVE /HPF
--- NOTE | 2019-04-20 16:00 | Diagnostic Imaging Report ---
INDICATION: Dizziness and headache. COMPARISON: Comparison made to 11/12/2016. TECHNIQUE: Multiple contiguous axial images were obtained through the brain without the use of intravenous contrast. Auto Exposure Controls were utilized during the CT exam to meet ALARA standards for radiation dose reduction. Noncontrast brain CT is performed. FINDINGS: There were no extra-axial fluid collections. No intracranial hemorrhage. No intracranial mass or mass effect. No midline shift. The ventricles are normal in size and position. There were no focal parenchymal abnormalities in the brain. Calvarial windows are unremarkable. IMPRESSION: Negative noncontrast brain CT, no change from the previous study. Dictated by: Dictated on workstation # [id number]
[2019-04-20 16:15] VITALS: BP 125/95
== END 2019-04-20 16:32 | disposition home or self-care (01) ==
LOC: EDUNIT# 14:16 → ER 14:17
DX: R42 Dizziness and giddiness (principal); Z88.0 Allergy status to penicillin; Z88.6 Allergy status to analgesic agent; Z88.8 Allergy status to other drugs, medicaments and biological substances; Z87.891 Personal history of nicotine dependence
CPT/HCPCS: 36415; 70450; 80053; 81000; 84484; 85025; 93005; 96360

== ENCOUNTER 2021-01-18 00:16 | Inpatient (IN) | payer BC ==
[2021-01-18] VITALS (10 sets, daily range): BP systolic 116–133; BP diastolic 62–90
[~2021-01-18 00:16] MED LIST changes: -CLIN150C17 PO; +CLIN150C20 PO; -CLIN300C11 PO; +CLIN300C12 PO; -LIDO15SO2 MM; +LIDO20SO23 MM; -MECL-106 PO; +MECL-149 PO; +SCOP1PAT10 TD; -SCOP1PAT11 TD
[2021-01-18] MEDS ORDERED: LACTATED RINGERS 1,000 ML IV ONE ×2 (00:30→02:00)
[2021-01-18] MEDS ORDERED: ACETAMINOPHEN 500 MG TAB (TYLENOL) PO ONE (01:00)
[2021-01-18] MEDS ORDERED: ONDANSETRON 4 MG/2 ML (SDV) Z0FRAN IVP ONE (01:00)
[2021-01-18 01:01] LABS: EOSINOPHILS % (AUTO) 0 % (0-10)
[2021-01-18 01:03] LABS: BASOPHILS % (AUTO) 0 % (0-10); HEMATOCRIT 41 % (35-52); HEMOGLOBIN 12.8 g/dL (11.5-16.0); LYMPHOCYTES % (AUTO) 13 % (12-44); MEAN CORPUSCULAR HEMOGLOBIN 28 pg (25-34); MEAN CORPUSCULAR HGB CONC 32 g/dL (32-36); MEAN CORPUSCULAR VOLUME 88 fL (80-99); MEAN PLATELET VOLUME 9.3 fL (9.0-12.2); MONOCYTES # (AUTO) 0.3 10^3/uL (0.0-1.0); MONOCYTES % (AUTO) 4 % (0-12); NEUTROPHILS % (AUTO) 80 % (42-75); PLATELET COUNT 291 10^3/uL (130-400); WHITE BLOOD COUNT 7.6 10^3/uL (4.3-11.0)
[2021-01-18 01:13] LABS: FIBRIN DEGRADATION PRODUCTS 0.61 UG/ML (0.00-0.49); PROTHROMBIN TIME PATIENT 13.9 SEC (12.2-14.7)
[2021-01-18 01:16] LABS: BILIRUBIN,URINE NEGATIVE (NEGATIVE); CLARITY,URINE CLEAR; COLOR,URINE YELLOW; GLUCOSE, URINE (UA) NEGATIVE (NEGATIVE); KETONES,URINE NEGATIVE (NEGATIVE); LEUKOCYTE ESTERASE ,URINE TRACE (NEGATIVE); NITRITE,URINE NEGATIVE (NEGATIVE); PH,URINE 6.5 (5-9); PROTEIN,URINE TRACE (NEGATIVE)
[2021-01-18 01:20] LABS: ERYTHROCYTE SEDIMENTATION RATE 26 MM/HR (0-30)
[2021-01-18 01:29] LABS: BACTERIA,URINE FEW /HPF; WBC,URINE 0-2 /HPF
[2021-01-18 01:48] LABS: ALBUMIN 3.4 GM/DL (3.2-4.5); POTASSIUM 4.2 MMOL/L (3.6-5.0)
[2021-01-18 01:49] LABS: CALCIUM 8.8 MG/DL (8.5-10.1)
[2021-01-18 01:50] LABS: TOTAL PROTEIN 7.5 GM/DL (6.4-8.2)
[2021-01-18 01:52] LABS: BILIRUBIN,TOTAL 0.4 MG/DL (0.1-1.0)
[2021-01-18 01:54] LABS: CREATININE SERUM 0.81 MG/DL (0.60-1.30)
[2021-01-18 01:56] LABS: MAGNESIUM 1.9 MG/DL (1.6-2.4)
--- NOTE | 2021-01-18 02:08 | ED Respiratory ---
General Chief Complaint: COVID19 Suspect/Confirmed Stated Complaint: COVID POSITIVE - DIZZY / DIARRHEA Source: patient (SOMEWHAT DIFFICULT HISTORIAN) History of Present Illness Date Seen by Provider: Jan 18, 2021 Time Seen by Provider: 00:26 Initial Comments PT ARRIVES VIA POV FROM HOME --DAUGHTER BROUGHT HER HERE STATES SHE TESTED + FOR COVID-[address] IZABELLA SHEIKH'S OFFICE ON 01/12/21, BUT BEGAN HAVING SYMPTOMS ON 01/09/21 C/O NASAL CONGESTION C/O MILD COUGH C/O SHORTNESS OF BREATH C/O HEADACHE C/O BODY ACHES C/O LOSS OF TASTE AND SMELL C/O SORE THROAT NO NAUSEA /VOMITING BEGAN HAVING DIARRHEA YESTERDAY--APPROXIMATELY 5 SMALL LOOSE STOOLS TODAY BEGAN HAVING DIZZINESS SINCE YESTERDAY STATES SHE HAS NOT BEEN EATING OR DRINKING MUCH--HAD CAN OF SOUP, SMALL GLASS OF ORANGE JUICE AND A CAN OF SODA TODAY, AND THAT IS BASICALLY HER INTAKE FOR THE LAST FEW DAYS PT HAS HAD DECREASED URINE OUTPUT, BUT DID VOID JUST PRIOR TO ARRIVAL PT IS UNAWARE OF FEVER AT ANY TIME, BUT HER TEMP IS > 101 ON ARRIVAL HERE PT WAS PRESCRIBED A STEROID WHEN SHE SAW DR. SHEIKH ON 01/12/21 BUT PT DID NOT GET IT FILLED--STATES "IT MAKES ME SHAKEY AND I LIVE ALONE AND I WAS AFRAID TO TAKE IT BECAUSE I LIVE ALONE" RX FOR ZITHROMAX AND IVERMECTIN WAS CALLED IN BY DR. SHEIKH ON 01/14/21--PT STATES SHE TOOK THE 6 IVERMECTIN PILLS AND HAS TAKEN 3 DAYS OF THE ZITHROMAX NO IMPROVEMENT IN SYMPTOMS HAS NOT TAKEN ANY OTHER MEDICATIONS FOR HER SYMPTOMS--NO TYLENOL, NO OVER THE COUNTER COLD MEDICATIONS, ETC. STATES SHE CAME HERE TONIGHT "BECAUSE I LIVE ALONE AND I GOT SCARED" PT IS ON MEDICATIONS FOR ANXIETY AND DEPRESSION, BUT QUIT TAKING THEM WHEN SHE BEGAN TO GET SICK. PT HAS NOT RECEIVED COVID-19 VACCINE PT SMOKED 1 PPD, QUIT 5 YEARS AGO, ADMITS TO OCCASIONAL ETOH USE, AND NO DRUG USE (OTHER THAN THC TEEN) PT STATES SHE IS PERIMENOPAUSAL, WITH OCCASIONAL PERIODS OVER THE LAST 2 YEARS, HAS BEEN A FEW MONTHS SINCE SHE LAST HAD A PERIOD. PCP: DR. IZABELLA SHEIKH. Allergies and Home Medications Allergies Coded Allergies: oseltamivir (Verified Allergy, Severe, EDEMA, SOA, 04/20/19) Penicillins (Unverified Allergy, Mild, 08/25/08) ibuprofen (Unverified Allergy, Mild, 08/25/08) Patient Home Medication List Home Medication List Reviewed: Yes Azithromycin (Azithromycin) 250 Mg Tablet, (Reported) Entered as Reported by: FEDERICA BRANDON on 11/12/162301 Azithromycin (Azithromycin) 250 Mg Tablet, 250 MG PO UD Prescribed by: KASSI CORONA on 03/31/172125 Clindamycin HCl (Clindamycin HCl) 300 Mg Capsule, 300 MG PO QID Prescribed by: CESAR WOODWARD on 01/08/17141 Clindamycin HCl (Clindamycin HCl) 150 Mg Capsule, 450 MG PO TID Prescribed by: KASSI CORONA on 06/19/18417 Hydrocodone Bit/Acetaminophen (Lortab 5 Mg Tablet) 1 Tab Tab, 1-2 EACH PO Q6H PRN for BREAKTHROUGH PAIN Prescribed by: KASSI CORONA on 06/19/18417 Lidocaine HCl (Lidocaine HCl Viscous) 15 Ml Solution, 1-2 ML MM Q 1-2 HOURS Prescribed by: CESAR WOODWARD on 01/08/17141 Meclizine HCl (Meclizine HCl) 25 Mg Tablet, 25-50 MG PO Q6H Prescribed by: CESAR WOODWARD on 11/13/1624 Scopolamine (Transderm-Scop) 1 Each Patch.td72, 1 EACH TD Q72 HOURS Prescribed by: CESAR WOODWARD on 11/13/1624 Tramadol HCl (Ultram) 50 Mg Tablet, 50 MG PO Q4H Prescribed by: CESAR WOODWARD on 01/08/17141 [Hydrocodone] , (Reported) Entered as Reported by: FEDERICA BRANDON on 11/12/162301 Review of Systems Review of Systems Constitutional: see HPI, dizziness, malaise, weakness EENTM: see HPI, nose congestion, throat pain Respiratory: see HPI, cough; No phlegm; short of breath Cardiovascular: no symptoms reported; No chest pain, No palpitations, No syncope Gastrointestinal: see HPI; No abdominal pain; diarrhea, loss of appetite; No nausea, No vomiting Genitourinary: no symptoms reported, decreased output : No Musculoskeletal: see HPI (BODY ACHES) Skin: no symptoms reported; No rash Psychiatric/Neurological: See HPI, Anxiety, Headache Hematologic/Lymphatic: No Symptoms Reported Immunological/Allergic: no symptoms reported Past Hsbvkal-Qklxzc-Kpogdk Hx Patient Social History Tobacco Use?: Yes Smoking Status: Former Smoker (SMOKED 1 PPD, QUIT 5 YEARS AGO) Substance use?: Yes (THC IN HIGH SCHOOL) Additional substance use comme: THC IN HIGH SCHOOL Alcohol Use?: Yes Alcohol Frequency: Once in a while Seasonal Allergies Seasonal Allergies: No Past Medical History Surgeries: Yes (DENTAL SURGERY) Respiratory: No Cardiac: No Neurological: No : No Reproductive Disorders: No (PERIMENOPAUSAL) Genitourinary: No Gastrointestinal: No Musculoskeletal: No Endocrine: Yes (OBESITY) HEENT: Yes (CHRONIC DENTAL PROBLEMS--"BAD TEETH") Cancer: No Psychosocial: Yes Anxiety Integumentary: No Blood Disorders: No Adverse Reaction/Blood Tranf: No Family Medical History Asthma Physical Exam Vital Signs - First Documented 01/18/21 00:40 O2 Flow Rate 2.00 Capillary Refill : Height: 5'5.00" Weight: 220lbs. oz. 99.520674bb; 39.00 BMI Method:Stated General Appearance: obese, other (MILDLY DYSPNEIC, MILDLY ANXIOUS) HEENT: PERRL/EOMI, normal ENT inspection, TMs normal, pharynx normal Neck: normal inspection Respiratory: normal breath sounds; No rales, No rhonchi, No wheezing; other (MILDLY TACHYPNEIC AND DYSPNEIC) Cardiovascular: no edema, no murmur, tachycardia (130) Gastrointestinal: non tender, soft Extremities: normal inspection, no pedal edema, no calf tenderness, normal capillary refill Neurologic/Psychiatric: ship/rec/doc control II-XII nml as tested, no motor/sensory deficits, alert, oriented x 3 Skin: normal color, warm/dry; No rash; tattoos/piercings Focused Exam Lactate Level 01/18/21 01:20: Lactic Acid Level 2.28*H Lactic Acid Level Laboratory Tests Test 01/18/21 01:20 Lactic Acid Level 2.28 MMOL/L (0.50-2.00) *H Progress/Results/Core Measures Suspected Sepsis SIRS Temperature: Pulse: 122 Respiratory Rate: Laboratory Tests 01/18/21 00:38: White Blood Count 7.6 Blood Pressure 121 /90 Mean: 100 01/18/21 01:20: Lactic Acid Level 2.28*H Laboratory Tests 01/18/21 00:38: INR Comment 1.0, Platelet Count 291 01/18/21 01:20: Creatinine 0.81, Total Bilirubin 0.4 Results/Orders Lab Results Laboratory Tests Test 01/18/21 00:38 01/18/21 01:00 01/18/21 01:20 Range/Units White Blood Count 7.6 4.3-11.0 10^3/uL Red Blood Count 4.61 3.80-5.11 10^6/uL Hemoglobin 12.8 11.5-16.0 g/dL Hematocrit 41 35-52 % Mean Corpuscular Volume 88 80-99 fL Mean Corpuscular Hemoglobin 28 25-34 pg Mean Corpuscular Hemoglobin Concent 32 32-36 g/dL Red Cell Distribution Width 17.3 H 10.0-14.5 % Platelet Count 291 130-400 10^3/uL Mean Platelet Volume 9.3 9.0-12.2 fL Immature Granulocyte % (Auto) 2 % Neutrophils (%) (Auto) 80 H 42-75 % Lymphocytes (%) (Auto) 13 12-44 % Monocytes (%) (Auto) 4 0-12 % Eosinophils (%) (Auto) 0 0-10 % Basophils (%) (Auto) 0 0-10 % Neutrophils # (Auto) 6.0 1.8-7.8 10^3/uL Lymphocytes # (Auto) 1.0 1.0-4.0 10^3/uL Monocytes # (Auto) 0.3 0.0-1.0 10^3/uL Eosinophils # (Auto) 0.0 0.0-0.3 10^3/uL Basophils # (Auto) 0.0 0.0-0.1 10^3/uL Immature Granulocyte # (Auto) 0.2 H 0.0-0.1 10^3/uL Percent Immature Platelet Fraction 2.3 0.0-7.6 % Erythrocyte Sedimentation Rate 26 0-30 MM/HR Prothrombin Time 13.9 12.2-14.7 SEC INR Comment 1.0 0.8-1.4 Activated Partial Thromboplast Time 26 24-35 SEC D-Dimer 0.61 H 0.00-0.49 UG/ML Urine Color YELLOW Urine Clarity CLEAR Urine pH 6.5 5-9 Urine Specific [place] 1.010 L 1.016-1.022 Urine Protein TRACE H NEGATIVE Urine Glucose (UA) NEGATIVE NEGATIVE Urine Ketones NEGATIVE NEGATIVE Urine Nitrite NEGATIVE NEGATIVE Urine Bilirubin NEGATIVE NEGATIVE Urine Urobilinogen 0.2 < = 1.0 MG/DL Urine Leukocyte Esterase TRACE H NEGATIVE Urine RBC (Auto) 3+ H NEGATIVE Urine RBC 10-25 H /HPF Urine WBC 0-2 /HPF Urine Squamous Epithelial Cells 2-5 /HPF Urine Crystals NONE /LPF Urine Bacteria FEW H /HPF Urine Casts NONE /LPF Urine Mucus MODERATE H /LPF Urine Culture Indicated CULTURE PENDING Sodium Level 133 L 135-145 MMOL/L Potassium Level 4.2 3.6-5.0 MMOL/L Chloride Level 99 98-107 MMOL/L Carbon Dioxide Level 21 21-32 MMOL/L Anion Gap 13 5-14 MMOL/L Blood Urea Nitrogen 9 7-18 MG/DL Creatinine 0.81 0.60-1.30 MG/DL Estimat Glomerular Filtration Rate 74 BUN/Creatinine Ratio 11 Glucose Level 142 H 70-105 MG/DL Lactic Acid Level 2.28 *H 0.50-2.00 MMOL/L Calcium Level 8.8 8.5-10.1 MG/DL Corrected Calcium 9.3 8.5-10.1 MG/DL Magnesium Level 1.9 1.6-2.4 MG/DL Total Bilirubin 0.4 0.1-1.0 MG/DL Aspartate Amino Transf (AST/SGOT) 43 H 5-34 U/L Alanine Aminotransferase (ALT/SGPT) 42 0-55 U/L Alkaline Phosphatase 123 40-136 U/L C-Reactive Protein High Sensitivity 4.80 H 0.00-0.50 MG/DL Total Protein 7.5 6.4-8.2 GM/DL Albumin 3.4 3.2-4.5 GM/DL Lipase 23 8-78 U/L Procalcitonin 0.07 <0.10 NG/ML My Orders Orders - CESAR WOODWARD DO Ed Iv/Invasive Line Start (01/18/21 00:26) Monitor-Rhythm Ecg Trace Only (01/18/21 00:26) Orthostatic Vital Signs (Adult (01/18/21 00:26) Chest 1 View, Ap/Pa Only (01/18/21 00:26) Cbc With Automated Diff (01/18/21) Comprehensive Metabolic Panel (01/18/21) Hs C Reactive Protein (01/18/21) Fibrin Degradation Products (01/18/21) Lipase (01/18/21) Magnesium (01/18/21) Ua Culture If Indicated (01/18/21) Erythrocyte Sedimentation Rate (01/18/21) Ed Iv/Invasive Line Start (01/18/21) Lactated Ringers (Lr 1000 Ml Iv Solution (01/18/21 00:30) Urine Culture (01/18/21) Protime With Inr (01/18/21) Partial Thromboplastin Time (01/18/21) Ed Iv/Invasive Line Start (01/18/21) Ed Iv/Invasive Line Start (01/18/21:) Vital Signs Adult Sepsis Patie Q15M (01/18/21:) Remove Rings In Anticipation O (01/18/21) Lactic Acid Analyzer (01/18/21) Procalcitonin (Pct) (01/18/21:) Acetaminophen Tablet (Tylenol Tablet) (01/18/21 01:00) Ondansetron Injection (Zofran Injectio (01/18/21 01:00) Ed Iv/Invasive Line Start (01/18/21 01:53) Lactated Ringers (Lr 1000 Ml Iv Solution (01/18/21 02:00) Medications Given in ED Current Medications Medications Dose Ordered Sig/Jori Route Start Time Stop Time Status Last Admin Dose Admin Acetaminophen 1,000 mg ONCE ONCE PO 01/18/21 01:00 01/18/21 01:01 DC 01/18/21 00:58 1,000 MG Lactated Ringer's 1,000 ml @ 0 mls/hr Q0M ONCE IV 01/18/21 00:30 01/18/21 00:31 DC 01/18/21 00:49 999 MLS/HR Lactated Ringer's 1,000 ml @ 0 mls/hr Q0M ONCE IV 01/18/21 02:00 01/18/21 02:01 DC 10/3/21 02:20 999 MLS/HR Ondansetron HCl 8 mg ONCE ONCE IVP 01/18/21 01:00 01/18/21 01:01 DC 01/18/21 00:58 8 MG Vital Signs/I&O 01/18/21 01/18/21 01/18/21 01/18/21 00:22 00:22 00:40 01:04 Temp 38.7 Pulse 122 129 Resp 24 B/P (MAP) 128/72 (90) 116/62 (80) Pulse Ox 92 O2 Delivery Room Air Room Air Nasal Cannula O2 Flow Rate 2.00 01/18/21 01:05 Pulse 122 B/P (MAP) 121/90 (100) Capillary Refill : Blood Pressure Mean: 100 Progress Note : Progress Note PLACED IN ISOLATION ROOM PPE WORN AT ALL TIMES O2 SATS 90-92% ON ROOM AIR ON ARRIVAL PLACED ON O2 AT 2L/NC AND O2 SATS 94-97% GIVEN IV FLUIDS AND TYLENOL FOR FEVER AND GENERALIZED PAIN COMPLAINTS PT DID HAVE SOME NAUSEA, GIVEN ZOFRAN AND THIS RESOLVED. PT ABLE TO TOLERATE WATER AFTER THAT HEART RATE DOWN TO 80'S TEMP DOWN AT TIME OF ADMIT RESPIRATORY RATE DOWN, AND PT IS NO LONGER DYSPNEIC--RESPIRATIONS EVEN AND UNLA BORED ATTEMPTED TO WEAN OFF O2, AND O2 SATS QUICKLY DROPPED 89-92% ON ROOM AIR, THEN BACK UP TO 94-97% ON 2L/NC. Diagnostic Imaging Comments CXR--NO ACUTE PROCESS, PENDING RADIOLOGIST REVIEW Reviewed: Reviewed by Me Departure Communication (Admissions) 0300--SPOKE WITH DR. PERKINS, HOSPITAL ADMISSIONS OFFICER FOR DR. IZABELLA SHEIKH. ACCEPTS PT FOR ADMIT Impression Primary Impression: COVID-19 Additional Impressions: Hypoxia Sepsis Dehydration UTI (urinary tract infection) Disposition: ADMITTED INPATIENT Condition: Improved Admissions Decision to Admit Reason: Admit from ER (General) Decision to Admit/Date: Jan 18, 2021 Time/Decision to Admit Time: 03:00 Departure-Patient Inst. Referrals: IZABELLA SHEIKH MD (PCP/Family) Primary Care Physician CESAR WOODWARD DO Jan 18, 2021 02:08
[2021-01-18] MEDS ORDERED: cefTRIAXone 1,000 MG in WATER (STERILE) FOR INJECTION 10 ML IV ONE (03:30)
[2021-01-18] MEDS ORDERED: LACTATED RINGERS 1,000 ML IV SCH (04:30)
[2021-01-18] MEDS ORDERED: LORazepam INJ 2 MG/ML (ATIVAN) VIAL IV PRN (04:30)
[2021-01-18] MEDS ORDERED: ONDANSETRON 4 MG/2 ML (SDV) Z0FRAN IV PRN (04:30)
[2021-01-18] MEDS: LACTATED RINGERS 1,000 ML IV SCH ×3 (04:42→19:46)
--- NOTE | 2021-01-18 05:53 | Diagnostic Imaging Report ---
INDICATION: COVID +. TECHNIQUE: Single view chest 1:21 AM. CORRELATION STUDY: 04/15/2019 FINDINGS: The heart size, mediastinal configuration and pulmonary vascularity are within normal limits. No definitive consolidating infiltrate suggested at this time. No significant effusion or pneumothorax. Overlapping soft tissues obscure detail. IMPRESSION: 1. Negative for acute abnormality of the chest. Dictated by: Dictated on workstation # [id number]
[2021-01-18] MEDS ORDERED: RT-ALBUTEROL HFA 8.5 GM INHALER IH PRN (06:30)
--- NOTE | 2021-01-18 09:21 | History & Physical ---
History of Present Illness History of Present Illness Reason for visit/HPI PT IS A 50 Y/O FEMALE WHO IS A CLINIC PATIENT OF DR. 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 THE PATIENT REPORTS THAT SHE STARTED TO HAVE SYMPTOMS ON 01/09/21 AND THEN WAS TESTED ON 01/12/21 - GOT HER RESULTS ON 01/14/21, STARTED ON A ZPACK AND IVERMECTIN PRESCRIBED BY DR. SHEIKH. SHE DID NOT START ON THE STEROID THAT WAS PRESCRIBED - SHE REPORTS SEVERE JITTERS FROM THE STEROIDS. SHE REPORTS DIARRHEA STARTED AFTER SHE HAD BEEN ON THE ORAL MEDS. SHE HAS SHORTNESS OF BREATH, HAS NOT EATEN WELL FOR A FEW DAYS, AND SHE REPORTS SHE CANNOT SMELL OR TASTE EITHER. SHE HAS NOT TAKEN THE COVID VACCINE Date of Admission Jan 18, 2021 at 03:00 Date Seen by a Provider: Jan 18, 2021 Time Seen by a Provider: 10:00 I consulted on this patient on 01/18/21 09:20 Attending Physician Izabella Sheikh MD Admitting Physician KATE PERKINS MD Consult Allergies and Home Medications Allergies Coded Allergies: oseltamivir (Verified Allergy, Severe, EDEMA, SOA, 04/20/19) Penicillins (Unverified Allergy, Mild, 08/25/08) ibuprofen (Unverified Allergy, Mild, 08/25/08) Patient Home Medication List Home Medication List Reviewed: Yes Azithromycin (Azithromycin) 250 Mg Tablet, (Reported) Entered as Reported by: FEDERICA BRANDON on 11/12/162 Last Action: Reviewed Azithromycin (Azithromycin) 250 Mg Tablet, 250 MG PO UD Prescribed by: KASSI CORONA on 03/31/172125 Last Action: Reviewed Meclizine HCl (Meclizine HCl) 25 Mg Tablet, 25-50 MG PO Q6H Prescribed by: CESAR WOODWARD on 11/13/1624 Last Action: Held Scopolamine (Transderm-Scop) 1 Each Patch.td72, 1 EACH TD Q72 HOURS Prescribed by: CESAR WOODWARD on 11/13/1624 Last Action: Held Discontinued Medications Clindamycin HCl (Clindamycin HCl) 300 Mg Capsule, 300 MG PO QID Prescribed by: CESAR WOODWARD on 01/08/17 0142 Last Action: Discontinued Clindamycin HCl (Clindamycin HCl) 150 Mg Capsule, 450 MG PO TID Prescribed by: KASSI CORONA on 06/19/18417 Last Action: Discontinued Hydrocodone Bit/Acetaminophen (Lortab 5 Mg Tablet) 1 Tab Tab, 1-2 EACH PO Q6H PRN for BREAKTHROUGH PAIN Prescribed by: KASSI CORONA on 06/19/18417 Last Action: Discontinued Lidocaine HCl (Lidocaine HCl Viscous) 15 Ml Solution, 1-2 ML MM Q 1-2 HOURS Prescribed by: CESAR WOODWARD on 01/08/17141 Last Action: Discontinued Tramadol HCl (Ultram) 50 Mg Tablet, 50 MG PO Q4H Prescribed by: CESAR WOODWARD on 01/08/17141 Last Action: Discontinued [Hydrocodone] , (Reported) Entered as Reported by: FEDERICA BRANDON on 11/12/162301 Last Action: Discontinued Past Luyqidy-Jtwplq-Pjlkqu Hx Patient Social History Marrital Status: single Living Status: LIVES ALONE IN HER [place] IN [place] Tobacco Use?: Yes Smoking Status: Former Smoker (SMOKED 1 PPD, QUIT 5 YEARS AGO) Substance use?: Yes (THC IN HIGH SCHOOL) Additional substance use comme: THC IN HIGH SCHOOL Alcohol Use?: Yes Alcohol Frequency: Once in a while Pt feels they are or have been: No Seasonal Allergies Seasonal Allergies: No Current Status status: No Advance Directives: No Communicates: Verbally Primary Language: Faroese Preferred Spoken Language: Faroese Is interpretation needed?: No Implanted or Applied Medical D: None Past Medical History Anxiety Blood Disorders: No Adverse Reaction/Blood Tranf: No DENTAL SURGERIED Family Medical History Reviewed and Corrections made Asthma, Hypertension Review of Systems Constitutional: No chills; fever, malaise, weakness EENTM: other (LOSS OF TASTE AND SMELL); No hoarseness, No throat pain Respiratory: No cough, No dyspnea on exertion; short of breath Cardiovascular: No chest pain, No palpitations Gastrointestinal: No abdominal pain; diarrhea, loss of appetite; No nausea, No vomiting Genitourinary: frequency Musculoskeletal: muscle weakness Skin: no symptoms reported; No lesions, No rash Psychiatric/Neurological: Weakness All Other Systems Reviewed Negative Unless Noted: Yes Physical Exam Vital Signs Vital Signs - First Documented 01/18/21 01/18/21 00:40 06:21 O2 Flow Rate 2.00 FiO2 28 Capillary Refill : Less Than 3 Seconds Height, Weight, BMI Height: 5'5.00" Weight: 220lbs. oz. 99.835492ad; 39.00 BMI Method:Stated General Appearance: No Apparent Distress, WD/WN HEENT: PERRL/EOMI, Pharynx Normal Neck: Full Range of Motion, Supple Respiratory: Chest Non Tender, Lungs Clear, Normal Breath Sounds, No Accessory Muscle Use, No Respiratory Distress Cardiovascular: Regular Rate, Rhythm, Normal Peripheral Pulses Gastrointestinal: Normal Bowel Sounds, No Organomegaly, No Pulsatile Mass, Non Tender, Soft Rectal: Deferred Extremity: Normal Capillary Refill, Normal Inspection, Normal Range of Motion, Non Tender, No Calf Tenderness, No Pedal Edema Neurologic/Psychiatric: Alert, Oriented x3, No Motor/Sensory Deficits, Normal 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 SHEIKH'S OFFICE. - CONTINUE WITH DEXAMETHASONE, OXYGEN AND PRN BREATHING TREATMENT - PT ON ROCEPHIN AND AZITHROMYCIN - STOP IVERMECTIN IT MAY BE CONTRIBUTING TO HER ELEVATED LFT'S, NAUSEA AND DIARRHEA HYPONATREMIA - REPLENISH WITH IV FLUIDS, CHECK LABS TOMORROW MORNING DIARRHEA - CHECK CDIFF DEHYDRATION - IMPROVED WITH FLUID HYDRATION IV. SHORTNESS OF BREATH - IMPROVED WITH OXYGEN AND BREATHING TREATMENT, MONITOR CXR TOMORROW. MILDLY ELEVATED LIVER ENZYMES - REPEAT LABS IN MORNING ELEVATED DDIMER - PT ON DVT PROPHYLAXIS LOVENOX DOSING. DVT PROPHYLAXIS WITH SCD'S AND LOVENOX GI PROPHYLAXIS WITH PROTONIX AND PROBIOTICS. Admission Diagnosis COVID 19 INFECTION SEPSIS WITH MILD LACTIC ACIDOSIS, FEVER AND TACHYCARDIA HYPONATREMIA DIARRHEA DEHYDRATION SHORTNESS OF BREATH MILDLY ELEVATED LIVER ENZYMES ELEVATED DDIMER Admission Status: Inpatient Order (span 2 midnights) Reason for Inpatient Admission: INPT ADMISSION FOR COVID 19 INFECTION KATE PERKINS MD Jan 18, 2021 09:21
[2021-01-18] MEDS: AZITHROMYCIN 250 MG TAB (ZITHROMAX) PO SCH (09:25)
[2021-01-18] MEDS ORDERED: PANTOPRAZOLE 40 MG (PROTONIX) TAB PO ONE ×2 (10:00→19:09)
[2021-01-18] MEDS: LACTOBACILLUS ACIDOPHILUS (PROBIOTIC) CAPSULE PO SCH ×2 (13:14→19:42)
[2021-01-18] MEDS: ENOXAPARIN 40 MG/0.4 ML (LOVENOX) SYR SC SCH (13:14)
[2021-01-18] MEDS: PROMETHAZINE/ CODEINE SYRUP 5 ML UDC PO PRN (19:41)
[2021-01-19] MEDS: PROMETHAZINE/ CODEINE SYRUP 5 ML UDC PO PRN ×3 (02:34→20:08)
[2021-01-19] MEDS: LACTATED RINGERS 1,000 ML IV SCH ×2 (02:34→08:04)
[2021-01-19 05:00] VITALS: BP 115/73
[2021-01-19] MEDS: cefTRIAXone 1,000 MG in WATER (STERILE) FOR INJECTION 10 ML IV SCH (05:14)
[2021-01-19 05:48] LABS: BASOPHILS % (AUTO) 0 % (0-10); EOSINOPHILS % (AUTO) 0 % (0-10); HEMATOCRIT 36 % (35-52); HEMOGLOBIN 11.4 g/dL (11.5-16.0); LYMPHOCYTES # (AUTO) 1.3 10^3/uL (1.0-4.0); LYMPHOCYTES % (AUTO) 19 % (12-44); MEAN CORPUSCULAR HEMOGLOBIN 28 pg (25-34); MEAN CORPUSCULAR HGB CONC 31 g/dL (32-36); MEAN CORPUSCULAR VOLUME 91 fL (80-99); MEAN PLATELET VOLUME 9.8 fL (9.0-12.2); MONOCYTES # (AUTO) 0.5 10^3/uL (0.0-1.0); MONOCYTES % (AUTO) 7 % (0-12); NEUTROPHILS # (AUTO) 5.2 10^3/uL (1.8-7.8); NEUTROPHILS % (AUTO) 72 % (42-75); PLATELET COUNT 260 10^3/uL (130-400); WHITE BLOOD COUNT 7.2 10^3/uL (4.3-11.0)
[2021-01-19 05:53] LABS: ALBUMIN 3.3 GM/DL (3.2-4.5)
[2021-01-19 05:54] LABS: CALCIUM 9.3 MG/DL (8.5-10.1)
[2021-01-19 05:56] LABS: TOTAL PROTEIN 7.3 GM/DL (6.4-8.2)
[2021-01-19 05:57] LABS: BILIRUBIN,TOTAL 0.1 MG/DL (0.1-1.0)
[2021-01-19 05:59] LABS: CREATININE SERUM 0.78 MG/DL (0.60-1.30)
--- NOTE | 2021-01-19 06:34 | Diagnostic Imaging Report ---
Reason for examination: COVID 19. Upright AP portable chest was obtained and compared to 01/18/2021. Heart size is within normal limits. No mediastinal widening. No effusions or definite infiltrate at this time. No pneumothorax, cystic or cavitary change. IMPRESSION: 1. No acute findings in the chest. No significant changes. Report was faxed to [facility] by [facility] at 6:33AM. Dictated by: Dictated on workstation # [id number]
[2021-01-19 08:00] VITALS: BP 115/73
[2021-01-19] MEDS: PANTOPRAZOLE 40 MG (PROTONIX) TAB PO SCH (08:04)
[2021-01-19] MEDS: LACTOBACILLUS ACIDOPHILUS (PROBIOTIC) CAPSULE PO SCH ×3 (08:04→17:07)
[2021-01-19] MEDS: ENOXAPARIN 40 MG/0.4 ML (LOVENOX) SYR SC SCH (08:05)
[2021-01-19] MEDS ORDERED: LACTATED RINGERS 1,000 ML IV SCH (08:28)
--- NOTE | 2021-01-19 08:31 | Progress Note ---
Subjective Subjective Date Seen by Provider: Jan 19, 2021 Time Seen by Provider: 08:10 50 yo F admitted yesterday because she was panicky living alone. She was positive for COVID and Gerald [place] virus on 01/12/21- She had 1 dose of ivermectin (6 tablets) on 01/14/21 and started steroids but she did not like taking them because they made her jittery. She was admitted mainly for dehydration and weakness and concern for decompensation. Pt reports feeling much better- much more comfortable with having medical staff around rather than being home alone. Review of Systems General: No Chills, No Night Sweats HEENT: No Head Aches Pulmonary: No Dyspnea; Cough Cardiovascular: No: Chest Pain, Palpitations Gastrointestinal: No: Nausea, Vomiting Genitourinary: Frequency Musculoskeletal: No: neck pain, shoulder pain Neurological: Weakness All Other Systems Reviewed All Other Systems Reviewed: Yes Objective Exam Vital Signs Vital Signs Date Time Temp Pulse Resp B/P (MAP) Pulse Ox O2 Delivery O2 Flow Rate FiO2 01/19/21 07:45 95 Nasal Cannula 2.00 01/19/21 06:37 90 01/19/21 05:00 35.6 63 20 115/73 (87) 98 Nasal Cannula 2.00 01/19/21 01:43 90 01/18/21 23:26 36.3 70 20 123/72 (89) 97 Nasal Cannula 2.00 01/18/21 20:00 37.0 84 24 133/74 (93) 97 Nasal Cannula 2.00 01/18/21 19:51 80 01/18/21 19:25 Nasal Cannula 2.00 01/18/21 15:56 37.1 81 20 121/76 (91) 97 Nasal Cannula 2.00 01/18/21 12:51 85 01/18/21 11:50 36.3 83 20 118/75 (89) 99 Nasal Cannula 2.00 01/18/21 11:03 96 Nasal Cannula 2.00 I & O 01/19/21 07:00 Intake Total 4070 ml Output Total 3307 ml Balance 763 ml General Appearance: No Apparent Distress, WD/WN HEENT: PERRL/EOMI, Pharynx Normal Neck: Full Range of Motion, Supple Respiratory: Chest Non Tender, Lungs Clear, Normal Breath Sounds, No Accessory Muscle Use, No Respiratory Distress, Decreased Breath Sounds Cardiovascular: Regular Rate, Rhythm, Normal Peripheral Pulses Gastrointestinal: Normal Bowel Sounds, No Organomegaly, No Pulsatile Mass, Non Tender, Soft Rectal: Deferred Extremity: Normal Capillary Refill, Normal Inspection, Normal Range of Motion, Non Tender, No Calf Tenderness, No Pedal Edema Neurologic/Psychiatric: Alert, Oriented x3, No Motor/Sensory Deficits, Normal 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, 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 Skin: Normal Color, Warm/Dry Lymphatic: No Adenopathy Results Lab Laboratory Tests 01/19/21 05:35: White Blood Count 7.2, Red Blood Count 4.01, Hemoglobin 11.4L, Hematocrit 36, Mean Corpuscular Volume 91, Mean Corpuscular Hemoglobin 28, Mean Corpuscular Hemoglobin Concent 31L, Red Cell Distribution Width 17.4H, Platelet Count 260, Mean Platelet Volume 9.8, Immature Granulocyte % (Auto) 2, Neutrophils (%) (Auto) 72, Lymphocytes (%) (Auto) 19, Monocytes (%) (Auto) 7, Eosinophils (%) (Auto) 0, Basophils (%) (Auto) 0, Neutrophils # (Auto) 5.2, Lymphocytes # (Auto) 1.3, Monocytes # (Auto) 0.5, Eosinophils # (Auto) 0.0, Basophils # (Auto) 0.0, Immature Granulocyte # (Auto) 0.2H, Sodium Level 138, Potassium Level 4.0, Chloride Level 102, Carbon Dioxide Level 27, Anion Gap 9, Blood Urea Nitrogen 12, Creatinine 0.78, Estimat Glomerular Filtration Rate 78, BUN/Creatinine Ratio 15, Glucose Level 147H, Calcium Level 9.3, Corrected Calcium 9.9, Total Bilirubin 0.1, Aspartate Amino Transf (AST/SGOT) 30, Alanine Aminotransferase (ALT/SGPT) 33, Alkaline Phosphatase 116, Total Protein 7.3, Albumin 3.3 Microbiology 01/18/21 C. difficile G[facility] Antigen & Toxins - Final, Complete Assessment/Plan Assessment/Plan Assessment and Plan 01/19/21- continue inpatient care- I slowed her IVFs to 75ml/hr and d/c them when the current bag is empty. Monitor urine culture. continue steroids. I took her off oxygen and she remained 97-98% while I was in the room- expect she does not need oxygen but will see how she does during today and if she naps. hyponatremia- resolved. LFTs are normal now. Pt likely has fatty liver disease. Suspect her diarrhea is multifactorial- drug induced (azithromycin, 1 dose of ivermectin), infection- delta variant covid. - no longer septic. Her ill feeling is likely both from EBV and COVID- respiratory-mcnamara she is doing great. Dispo: plan on discharge to home tomorrow if she is doing well and no new issues come up. Problems: (1) [place] infection (2) COVID-19 (3) UTI (urinary tract infection) (4) Acute diarrhea (5) Hyponatremia (6) Dehydration IZABELLA SHEIKH MD Jan 19, 2021 08:31
[2021-01-19] MEDS: AZITHROMYCIN 250 MG TAB (ZITHROMAX) PO SCH (08:35)
[2021-01-19] MEDS ORDERED: BUSP15TA60 PO (10:10)
[2021-01-19] MEDS ORDERED: AZIT250T12 PO (10:10)
[2021-01-19] MEDS ORDERED: DEXT15LI3 PO (10:10)
[2021-01-19] MEDS ORDERED: DEXT30SU5 PO (10:10)
[2021-01-19] MEDS ORDERED: ACET325T38 PO (10:10)
[2021-01-19] MEDS ORDERED: CITA20TA9 PO (10:10)
[2021-01-19 12:00] VITALS: BP 129/81
[2021-01-19 15:09] VITALS: BP 125/78
[2021-01-19] MEDS: ACETAMINOPHEN 500 MG TAB (TYLENOL) PO PRN (20:08)
[2021-01-19 20:24] VITALS: BP 120/76
[2021-01-20 00:39] VITALS: BP 107/71
[2021-01-20 04:19] VITALS: BP 115/69
[2021-01-20] MEDS: cefTRIAXone 1,000 MG in WATER (STERILE) FOR INJECTION 10 ML IV SCH (05:39)
[2021-01-20 08:00] VITALS: BP 124/85
[2021-01-20] MEDS: PROMETHAZINE/ CODEINE SYRUP 5 ML UDC PO PRN (09:43)
[2021-01-20] MEDS: PANTOPRAZOLE 40 MG (PROTONIX) TAB PO SCH (09:44)
[2021-01-20] MEDS: LACTOBACILLUS ACIDOPHILUS (PROBIOTIC) CAPSULE PO SCH ×2 (09:44→13:45)
[2021-01-20] MEDS: ENOXAPARIN 40 MG/0.4 ML (LOVENOX) SYR SC SCH (09:46)
--- NOTE | 2021-01-20 11:53 | Discharge Summary ---
Discharge Summary Hospital Course Problems/Dx: (1) Gerald [place] infection (2) COVID-19 (3) UTI (urinary tract infection) (4) Acute diarrhea (5) Hyponatremia (6) Dehydration Hospital Course Date of Admission: Jan 18, 2021 at 03:00 Admission Diagnosis : (1) [place] infection (2) COVID-19 (3) UTI (urinary tract infection) (4) Acute diarrhea (5) Hyponatremia (6) Dehydration Family Physician/Provider: Galdino Sheikh MD Date of Discharge: 01/20/21 Discharge Diagnosis: (1) [place] infection (2) COVID-19 (3) UTI (urinary tract infection) (4) Acute diarrhea (5) Hyponatremia (6) Dehydration Hospital Course: PT IS A 50 Y/O FEMALE WHO IS A CLINIC PATIENT OF DR. 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 THE PATIENT REPORTS THAT SHE STARTED TO HAVE SYMPTOMS ON 01/09/21 AND THEN WAS TESTED ON 01/12/21 - GOT HER RESULTS ON 01/14/21, STARTED ON A ZPACK AND IVERMECTIN PRESCRIBED BY DR. SHEIKH. SHE DID NOT START ON THE STEROID THAT WAS PRESCRIBED - SHE REPORTS SEVERE JITTERS FROM THE STEROIDS. SHE REPORTS DIARRHEA STARTED AFTER SHE HAD BEEN ON THE ORAL MEDS. SHE HAS SHORTNESS OF BREATH, HAS NOT EATEN WELL FOR A FEW DAYS, AND SHE REPORTS SHE CANNOT SMELL OR TASTE EITHER. SHE HAS NOT TAKEN THE COVID VACCINE 50 yo F admitted yesterday because she was panicky living alone. She was positive for COVID and Gerald [place] virus on 01/12/21- She had 1 dose of ivermectin (6 tablets) on 01/14/21 and started steroids but she did not like t aking them because they made her jittery. She was admitted mainly for dehydration and weakness and concern for decompensation. Pt reports feeling much better- much more comfortable with having medical staff around rather than being home alone. Patient was taken off of oxygen as she did not need it and remained high 95+ saturation on room air. She was deemed stable for discharge to home on 01/20/21. Labs and Pending Lab Test: Microbiology 01/18/21 C. difficile GDH Antigen & Toxins - Final, Complete 01/18/21 Urine Culture - Final, Complete Gram Pos Mixed Bacterial [place] Home Meds Active Reported Delsym (Dextromethorphan Polistirex) 30 Mg/5 Ml Ana.er.12h 10 Ml PO Q12H PRN Tylenol (Acetaminophen) 325 Mg Tablet 650 Mg PO Q6H PRN Citalopram HBr (Citalopram Hydrobromide) 20 Mg Tablet 20 Mg PO HS Buspirone HCl 15 Mg Tablet 15 Mg PO HS Azithromycin 250 Mg Tablet 250 Mg PO DAILY FILLED 01/14/2021 #6 5 DAY SUPPLY Assessment/Pt Instructions Follow up at [facility] in 1 week. -You are off quarantine 01/19/21 (10 days) Discharge Planning: >30 minutes discharge planning Discharge Instructions Discharge Diet: Regular Diet Activity as Tolerated: Yes Discharge Physical Examination Vital Signs Vital Signs Date Time Temp Pulse Resp B/P (MAP) Pulse Ox O2 Delivery O2 Flow Rate FiO2 01/20/21 09:00 97 Room Air 01/20/21 08:00 36.8 77 20 124/85 (98) 01/19/21 12:00 2.00 01/18/21 06:21 28 General Appearance: No Apparent Distress HEENT: PERRL/EOMI Respiratory: Lungs Clear, Normal Breath Sounds Cardiovascular: Regular Rate, Rhythm Gastrointestinal: Soft Skin: Warm/Dry Neurologic/Psychiatric: Alert, Oriented x3 Allergies: Coded Allergies: oseltamivir (Verified Allergy, Severe, EDEMA, SOA, 04/20/19) Penicillins (Unverified Allergy, Mild, 08/25/08) ibuprofen (Unverified Allergy, Mild, 08/25/08) Discharge Summary Date of Admission Jan 18, 2021 at 03:00 Date of Discharge Discharge Diagnosis (1) [place] infection (2) COVID-19 (3) UTI (urinary tract infection) (4) Acute diarrhea (5) Hyponatremia (6) Dehydration GALDINO SHEIKH MD Jan 20, 2021 11:53
[2021-01-20 12:00] VITALS: BP 135/85
[2021-01-20] MEDS ORDERED: dexAMETHasone 6 MG TAB (DECADRON) PO ONE (12:00)
[2021-01-20] MEDS: ACETAMINOPHEN 500 MG TAB (TYLENOL) PO PRN (13:46)
[2021-01-20 14:50] VITALS: BP 135/85
[2021-01-20] MEDS ORDERED: busPIRone 15 MG (BUSPAR) TABLET PO SCH (21:00)
--- NOTE | 2021-01-22 00:11 | Physician Query Clarification ---
PQ-Uncertain Diagnosis Admission/Discharge Admission Date: Jan 18, 2021 at 03:00 Discharge Date: Jan 20, 2021 at 14:50 Dr: IZABELLA SHEIKH MD The medical record reflects the following clinical scenario: History/Risk Factors: [list no more than 2] Clinical Findings: [list no more than 2] Treatment: [list no more than 2] Question: Is [diagnosis] a clinically valid diagnosis? [diagnosis] was documented in the [dates and type of documents] with no further documentation in the medical record. Please document a response in Progress Note or Discharge Summary. 1. Yes, clinically valid, condition resolved. 2. No, condition ruled out. 3. Other, with explanation of clinical findings. 4. Undetermined, no explanation for clinical findings. Please remember a lack of response to the above will prompt a phone page by CDI/Coding staff. In responding to this query, please exercise your independent professional judgment. The purpose of this communication is to more accurately reflect the complexity of your patients condition. The fact that a question is asked does not imply that any particular answer is desired or expected. Thank you for your timely response to this clarification. Requestors name: [ ] Phone # [ ] THIS PHYSICIAN QUERY FORM IS A PERMANENT PART OF THE MEDICAL RECORD GERALDINE MILLS Jan 22, 2021 00:11
== END 2021-01-20 14:50 | disposition home or self-care (01) | DRG 871 ==
LOC: EDUNIT# 00:16 → ER 00:18 → 4TH 03:00
PROVIDERS: ADMIT Family Medicine; ATTEND Family Medicine
DX: A41.89 Other specified sepsis (principal); U07.1 COVID-19; E87.2 Acidosis; E87.1 Hypo-osmolality and hyponatremia; N39.0 Urinary tract infection, site not specified; R19.7 Diarrhea, unspecified; E86.0 Dehydration; B27.00 Gammaherpesviral mononucleosis without complication; E66.9 Obesity, unspecified; F41.9 Anxiety disorder, unspecified; Z68.39 Body mass index [BMI] 39.0-39.9, adult; Z87.891 Personal history of nicotine dependence; Z79.2 Long term (current) use of antibiotics; Z79.899 Other long term (current) drug therapy; Z60.2 Problems related to living alone; I10 Essential (primary) hypertension; J45.909 Unspecified asthma, uncomplicated
CPT/HCPCS: 36415; 71045; 80053; 81000; 83605; 83690; 83735; 84145; 85025; 85379; 85610; 85652; 85730; 86141; 87088; 87324; 87449; 93041; 94760

== ENCOUNTER 2021-01-22 17:19 | Emergency (ER) | payer BC ==
[~2021-01-22] VITALS: Ht 170 cm; Wt 95.0 kg
[~2021-01-22 17:19] MED LIST changes: +ACET325T38 PO; +BUSP15TA60 PO; +CITA20TA9 PO; +DEXT15LI3 PO; +DEXT30SU5 PO
[2021-01-22] MEDS ORDERED: LACTATED RINGERS 1,000 ML IV STA (17:37)
--- NOTE | 2021-01-22 17:44 | ED General ---
General Stated Complaint: COVID+,SOB,BODY ACHES,DIZZY Source of Information: Patient Exam Limitations: No Limitations History of Present Illness Date Seen by Provider: Jan 22, 2021 Time Seen by Provider: 17:41 Initial Comments To ER with reports that she is Covid positive short of breath dizzy and achy. She became symptomatic on 01/09/2021. She tested positive for Covid and Gerald- [facility]ett on 01/12/2021. She was started on Zithromax steroid and ivermectin outpatient. She stopped the dexamethasone because it made her too jittery. She was then admitted to the hospital 10-3 to 10-and discharged home. She presents today with ongoing fatigue and malaise. She is unvaccinated against Covid. Timing/Duration: Constant, Getting Worse, Other Severity: Moderate Associated Systoms: Headaches, Nausea/Vomiting Allergies and Home Medications Allergies Coded Allergies: oseltamivir (Verified Allergy, Severe, EDEMA, SOA, 04/20/19) Penicillins (Unverified Allergy, Mild, 08/25/08) ibuprofen (Unverified Allergy, Mild, 08/25/08) Patient Home Medication List Home Medication List Reviewed: Yes Acetaminophen (Tylenol) 325 Mg Tablet, 650 MG PO Q6H PRN for PAIN-MILD (1-4), (Reported) Entered as Reported by: ROSA BANKS on 01/19/21 1010 Buspirone HCl (Buspirone HCl) 15 Mg Tablet, 15 MG PO HS, (Reported) Entered as Reported by: ROSA BANKS on 01/19/21 1010 Citalopram Hydrobromide (Citalopram HBr) 20 Mg Tablet, 20 MG PO HS, (Reported) Entered as Reported by: ROSA BANKS on 01/19/21 1010 Dextromethorphan Polistirex (Delsym) 30 Mg/5 Ml Ana.er.12h, 10 ML PO Q12H PRN for COUGH, (Reported) Entered as Reported by: ROSA BANKS on 01/19/21 1010 Discontinued Medications Azithromycin (Azithromycin) 250 Mg Tablet, (Reported) Discontinued Reason: Duplicate Order Entered as Reported by: FEDERICA BRANDON on 11/12/16 2302 Azithromycin (Azithromycin) 250 Mg Tablet, 250 MG PO UD Discontinued Reason: Duplicate Order Prescribed by: KASSI CORONA on 03/31/172125 Azithromycin (Azithromycin) 250 Mg Tablet, 250 MG PO DAILY, (Reported) Entered as Reported by: ROSA BANKS on 01/19/21 1010 Clindamycin HCl (Clindamycin HCl) 300 Mg Capsule, 300 MG PO QID Prescribed by: CESAR WOODWARD on 01/08/17141 Clindamycin HCl (Clindamycin HCl) 150 Mg Capsule, 450 MG PO TID Prescribed by: KASSI CORONA on 06/19/18417 Dextromethorphan HBr (Cough Relief) 15 Mg/5 Ml Liquid, 15 MG PO, (Reported) Discontinued Reason: No Longer Taking Entered as Reported by: ROSA BANKS on 01/19/21 1010 Hydrocodone Bit/Acetaminophen (Lortab 5 Mg Tablet) 1 Tab Tab, 1-2 EACH PO Q6H PRN for BREAKTHROUGH PAIN Prescribed by: KASSI CORONA on 06/19/18417 Lidocaine HCl (Lidocaine HCl Viscous) 15 Ml Solution, 1-2 ML MM Q 1-2 HOURS Prescribed by: CESAR WOODWARD on 01/08/17141 Meclizine HCl (Meclizine HCl) 25 Mg Tablet, 25-50 MG PO Q6H Discontinued Reason: Duplicate Order Prescribed by: CESAR WOODWARD on 11/13/1624 Scopolamine (Transderm-Scop) 1 Each Patch.td72, 1 EACH TD Q72 HOURS Discontinued Reason: Duplicate Order Prescribed by: CESAR WOODWARD on 11/13/1624 Tramadol HCl (Ultram) 50 Mg Tablet, 50 MG PO Q4H Prescribed by: CESAR WOODWARD on 01/08/17141 [Hydrocodone] , (Reported) Entered as Reported by: FEDERICA BRANDON on 11/12/16 2304 Review of Systems Review of Systems Constitutional: see HPI EENTM: see HPI Respiratory: see HPI, cough, dyspnea on exertion Cardiovascular: no symptoms reported Genitourinary: no symptoms reported Musculoskeletal: no symptoms reported Skin: no symptoms reported Psychiatric/Neurological: See HPI, Headache Hematologic/Lymphatic: No Symptoms Reported Immunological/Allergic: no symptoms reported Past Wjrffem-Bgrkrz-Wddlvc Hx Seasonal Allergies Seasonal Allergies: No Past Medical History Surgery/Hospitalization HX: ANXIETY; DEPRESSION Surgeries: Yes (DENTAL SURGERY) Respiratory: No Cardiac: No Neurological: No Reproductive Disorders: No (PERIMENOPAUSAL) Genitourinary: No Gastrointestinal: No Musculoskeletal: No Endocrine: Yes (OBESITY) HEENT: Yes (CHRONIC DENTAL PROBLEMS--"BAD TEETH") Cancer: No Psychosocial: Yes Anxiety Integumentary: No Blood Disorders: No Adverse Reaction/Blood Tranf: No Family Medical History Asthma, Hypertension Physical Exam Vital Signs Vital Signs - First Documented 01/22/21 01/22/21 17:55 19:31 Temp 36.8 Pulse 100 Resp 18 B/P (MAP) 133/86 (102) Pulse Ox 92 O2 Delivery OxyMask O2 Flow Rate 2.00 Capillary Refill : Height, Weight, BMI Height: 5'5.00" Weight: 220lbs. oz. 99.458089is; 39.00 BMI Method:Stated General Appearance: No Apparent Distress, WD/WN, Obese, Other (Oxygen saturation 87% on room air) Eyes: Bilateral Eye Normal Inspection, Bilateral Eye PERRL, Bilateral Eye EOMI Neck: Full Range of Motion, Normal Inspection Respiratory: No Accessory Muscle Use, No Respiratory Distress Cardiovascular: Regular Rate, Rhythm, Normal Peripheral Pulses Gastrointestinal: Normal Bowel Sounds, Non Tender, Soft Neurologic/Psychiatric: Alert, Oriented x3 Skin: Normal Color, Warm/Dry Progress/Results/Core Measures Suspected Sepsis SIRS Temperature: Pulse: Respiratory Rate: Laboratory Tests 01/22/21 17:36: White Blood Count 13.6H Blood Pressure / Mean: Laboratory Tests 01/22/21 17:36: Creatinine 0.74, Platelet Count 420H, Total Bilirubin 0.4 Results/Orders Lab Results Laboratory Tests Test 01/22/21 17:36 Range/Units White Blood Count 13.6 H 4.3-11.0 10^3/uL Red Blood Count 4.61 3.80-5.11 10^6/uL Hemoglobin 12.7 11.5-16.0 g/dL Hematocrit 40 35-52 % Mean Corpuscular Volume 87 80-99 fL Mean Corpuscular Hemoglobin 28 25-34 pg Mean Corpuscular Hemoglobin Concent 32 32-36 g/dL Red Cell Distribution Width 17.1 H 10.0-14.5 % Platelet Count 420 H 130-400 10^3/uL Mean Platelet Volume 9.3 9.0-12.2 fL Immature Granulocyte % (Auto) 4 % Neutrophils (%) (Auto) 70 42-75 % Lymphocytes (%) (Auto) 19 12-44 % Monocytes (%) (Auto) 5 0-12 % Eosinophils (%) (Auto) 1 0-10 % Basophils (%) (Auto) 1 0-10 % Neutrophils # (Auto) 9.5 H 1.8-7.8 10^3/uL Lymphocytes # (Auto) 2.6 1.0-4.0 10^3/uL Monocytes # (Auto) 0.7 0.0-1.0 10^3/uL Eosinophils # (Auto) 0.2 0.0-0.3 10^3/uL Basophils # (Auto) 0.1 0.0-0.1 10^3/uL Immature Granulocyte # (Auto) 0.5 H 0.0-0.1 10^3/uL D-Dimer 0.43 0.00-0.49 UG/ML Sodium Level 136 135-145 MMOL/L Potassium Level 4.1 3.6-5.0 MMOL/L Chloride Level 99 98-107 MMOL/L Carbon Dioxide Level 25 21-32 MMOL/L Anion Gap 12 5-14 MMOL/L Blood Urea Nitrogen 11 7-18 MG/DL Creatinine 0.74 0.60-1.30 MG/DL Estimat Glomerular Filtration Rate 82 BUN/Creatinine Ratio 15 Glucose Level 117 H 70-105 MG/DL Calcium Level 9.1 8.5-10.1 MG/DL Corrected Calcium 9.5 8.5-10.1 MG/DL Total Bilirubin 0.4 0.1-1.0 MG/DL Aspartate Amino Transf (AST/SGOT) 60 H 5-34 U/L Alanine Aminotransferase (ALT/SGPT) 72 H 0-55 U/L Alkaline Phosphatase 107 40-136 U/L C-Reactive Protein High Sensitivity 2.06 H 0.00-0.50 MG/DL Total Protein 7.6 6.4-8.2 GM/DL Albumin 3.5 3.2-4.5 GM/DL Procalcitonin 0.04 <0.10 NG/ML My Orders Orders - NEHAL MENDES POLITICAL ADVISOR Cbc With Automated Diff (01/22/21 17:37) Comprehensive Metabolic Panel (01/22/21 17:37) Hs C Reactive Protein (01/22/21 17:37) Procalcitonin (Pct) (01/22/21 17:37) Fibrin Degradation Products (01/22/21 17:37) Chest 1 View, Ap/Pa Only (01/22/21 17:37) Ketorolac Injection (Toradol Injection) (01/22/21 17:45) Lactated Ringers (Lr 1000 Ml Iv Solution (01/22/21 17:37) Rx-Ondansetron Po (Rx-Zofran Po) (01/22/21 19:38) Medications Given in ED Vital Signs/I&O 01/22/21 01/22/21 17:55 19:31 Temp 36.8 36.5 Pulse 100 80 Resp 18 18 B/P (MAP) 133/86 (102) 130/82 Pulse Ox 92 96 O2 Delivery OxyMask O2 Flow Rate 2.00 Capillary Refill : Departure Communication (Admissions) Family Conversation 1922-oxygen saturation was 86 to 88% on room air at rest. It increased to 94% with 2 L of supplemental oxygen. She is on day 13 of Covid illness and unlikely to further decline so I will discharge home with supplemental oxygen via [facility] out of [facility]. NAME: DAYO RIVERA [facility] REC#: [id number] PT STATUS: REG ER : 1970 PHYSICIAN: NEHAL MENDES APRN ADMIT DATE: 01/22/21/ER Signed Date of Exam:01/22/21 CHEST 1 VIEW, AP/PA ONLY INDICATION: Cough, Covid infection and dyspnea AP view of the chest is obtained with comparison made to the study of 01/19/2021. FINDINGS: Heart size and pulmonary vascularity are within normal limits, and the lungs are clear, bilaterally. IMPRESSION: Unremarkable chest. Dictated by: Dictated on workstation # [id number] Dict: 01/22/[id number] Trans: 01/22/211845 TAYLOR [id number] Interpreted by: BETH POWELL MD Electronically signed by: BETH POWELL MD 01/22/21 1846 Impression Primary Impression: COVID-19 Additional Impression: Hypoxia Disposition: 01 HOME, SELF-CARE Condition: Stable Departure-Patient Inst. Decision time for Depature: 19:24 Referrals: IZABELLA SHEIKH MD (PCP/Family) Primary Care Physician Patient Instructions: COVID-19 (DC) Copy Copies To 1: IZABELLA SHEIKH MD, PETER J APRN Jan 22, 2021 17:44
[2021-01-22] MEDS ORDERED: KETOROLAC 30 MG/ML VIAL IVP ONE (17:45)
[2021-01-22 17:59] LABS: HEMATOCRIT 40 % (35-52); HEMOGLOBIN 12.7 g/dL (11.5-16.0); MEAN CORPUSCULAR HEMOGLOBIN 28 pg (25-34); MEAN CORPUSCULAR HGB CONC 32 g/dL (32-36); MEAN CORPUSCULAR VOLUME 87 fL (80-99); PLATELET COUNT 420 10^3/uL (130-400); WHITE BLOOD COUNT 13.6 10^3/uL (4.3-11.0)
[2021-01-22 18:00] LABS: BASOPHILS # (AUTO) 0.1 10^3/uL (0.0-0.1); BASOPHILS % (AUTO) 1 % (0-10); EOSINOPHILS # (AUTO) 0.2 10^3/uL (0.0-0.3); EOSINOPHILS % (AUTO) 1 % (0-10); LYMPHOCYTES # (AUTO) 2.6 10^3/uL (1.0-4.0); LYMPHOCYTES % (AUTO) 19 % (12-44); MEAN PLATELET VOLUME 9.3 fL (9.0-12.2); MONOCYTES # (AUTO) 0.7 10^3/uL (0.0-1.0); MONOCYTES % (AUTO) 5 % (0-12); NEUTROPHILS # (AUTO) 9.5 10^3/uL (1.8-7.8); NEUTROPHILS % (AUTO) 70 % (42-75)
[2021-01-22 18:09] LABS: ALBUMIN 3.5 GM/DL (3.2-4.5); POTASSIUM 4.1 MMOL/L (3.6-5.0)
[2021-01-22 18:10] LABS: CALCIUM 9.1 MG/DL (8.5-10.1)
[2021-01-22 18:11] LABS: TOTAL PROTEIN 7.6 GM/DL (6.4-8.2)
[2021-01-22 18:13] LABS: BILIRUBIN,TOTAL 0.4 MG/DL (0.1-1.0)
[2021-01-22 18:15] LABS: CREATININE SERUM 0.74 MG/DL (0.60-1.30)
--- NOTE | 2021-01-22 18:31 | Diagnostic Imaging Report ---
INDICATION: Cough, Covid infection and dyspnea AP view of the chest is obtained with comparison made to the study of 01/19/2021. FINDINGS: Heart size and pulmonary vascularity are within normal limits, and the lungs are clear, bilaterally. IMPRESSION: Unremarkable chest. Dictated by: Dictated on workstation # [id number]
[2021-01-22 19:31] VITALS: BP 130/82
[2021-01-22] MEDS ORDERED: RX-ONDANSETRON 4 MG ODT (ZOFRAN) PPK #4 PO STA (19:38)
== END 2021-01-22 20:13 | disposition home or self-care (01) ==
LOC: EDUNIT# 17:19 → ER 17:20
DX: U07.1 COVID-19 (principal); R09.02 Hypoxemia; F41.9 Anxiety disorder, unspecified; F32.9 Major depressive disorder, single episode, unspecified; E66.9 Obesity, unspecified; Z68.39 Body mass index [BMI] 39.0-39.9, adult; Z79.899 Other long term (current) drug therapy
CPT/HCPCS: 36415; 71045; 80053; 84145; 85025; 85379; 86141

== ENCOUNTER 2021-04-08 17:40 | Emergency (ER) | payer BC ==
[~2021-04-08] VITALS: Ht 165 cm; Wt 108.8 kg
[~2021-04-08 17:40] MED LIST changes: +CLIN-144 PO; -CLIN300C12 PO
--- NOTE | 2021-04-08 18:28 | ED EENT ---
History of Present Illness General Chief Complaint: Dental Problems/Pain Stated Complaint: DENTAL PAIN/SWELLING Nursing Triage Note: PT AMBULATORY TO ER. PT C/O L SIDED DENTAL PAIN AND L SIDED FACIAL SWELLING ONSET DURING THE NIGHT. PT REPORTS HAS A HX OF POOR DENTITION, DOES NOT SEE A DENTIST. PT HAS TAKEN TYLENOL AND ORAJEL. CONTACTED HER PCP WHO CALLED HER IN [place] 300 MG TID, TOOK FIRST DOSE AROUND 1600 TODAY. Source: patient Exam Limitations: no limitations History of Present Illness Date Seen by Provider: Apr 08, 2021 Time Seen by Provider: 18:18 Initial Comments Patient to ER by private conveyance with chief complaint of 1 day of swelling pain redness along her left mandibular molars. She has extensive dental caries. She called Galdino Sheikh her doctor and he put her on clindamycin. She has been using Tylenol and Aleve. No fever chills nausea vomiting. She has had 1 dose of clindamycin Allergies and Home Medications Allergies Coded Allergies: oseltamivir (Verified Allergy, Severe, EDEMA, SOA, 04/20/19) Penicillins (Unverified Allergy, Mild, 08/25/08) ibuprofen (Unverified Allergy, Mild, 08/25/08) Patient Home Medication List Home Medication List Reviewed: Yes Acetaminophen (Tylenol) 325 Mg Tablet, 650 MG PO Q6H PRN for PAIN-MILD (1-4), (Reported) Entered as Reported by: ROSA BANKS on 01/19/21 1010 Buspirone HCl (Buspirone HCl) 15 Mg Tablet, 15 MG PO HS, (Reported) Entered as Reported by: ROSA BANKS on 01/19/21 1010 Citalopram Hydrobromide (Citalopram HBr) 20 Mg Tablet, 20 MG PO HS, (Reported) Entered as Reported by: ROSA BANKS on 01/19/21 1010 Dextromethorphan Polistirex (Delsym) 30 Mg/5 Ml Ana.er.12h, 10 ML PO Q12H PRN for COUGH, (Reported) Entered as Reported by: ROSA BANKS on 01/19/21 1010 Review of Systems Review of Systems Constitutional: No chills, No diaphoresis Eyes: Denies Blindness, Denies Blurred Vision Ears: No Symptoms Reported Nose: no symptoms reported Mouth: see HPI All Other Systems Reviewed Negative Unless Noted: Yes Past Iyilzme-Ojewxx-Oldhpx Hx Patient Social History Tobacco Use?: No Use of E-Cig and/or Vaping dev: No Substance use?: No Alcohol Use?: No Pt feels they are or have been: No Seasonal Allergies Seasonal Allergies: No Past Medical History Surgery/Hospitalization HX: ANXIETY; DEPRESSION Surgeries: Yes (DENTAL SURGERY) Respiratory: No Cardiac: No Neurological: No Reproductive Disorders: No (PERIMENOPAUSAL) Genitourinary: No Gastrointestinal: No Musculoskeletal: No Endocrine: Yes (OBESITY) HEENT: Yes (CHRONIC DENTAL PROBLEMS--"BAD TEETH") Cancer: No Psychosocial: Yes Anxiety Integumentary: No Blood Disorders: No Adverse Reaction/Blood Tranf: No Family Medical History Asthma, Hypertension Physical Exam Vital Signs Vital Signs - First Documented 04/08/21 04/08/21 17:59 18:17 Temp 36.5 Pulse 105 Resp 20 B/P (MAP) 184/120 (141) Pulse Ox 95 O2 Delivery Room Air Height, Weight, BMI Height: 5'5.00" Weight: 220lbs. oz. 99.024487on; 39.00 BMI Method:Stated General Appearance: WD/WN, no apparent distress Eyes: bilateral eye normal inspection, bilateral eye PERRL, bilateral eye EOMI Ears: bilateral ear auricle normal, bilateral ear canal normal Nose: normal inspection; No active bleeding, No discharge Mouth/Throat: other (Extensive dental caries with left mandibular soft tissue swelling and induration moderate size no palpable fluctuance.) Neck: full range of motion, supple, normal inspection Cardiovascular: normal peripheral pulses, regular rate, rhythm Progress/Results/Core Measures Results/Orders My Orders Orders - KASSI CORONA Lidocaine 2% Viscous 15 Ml (Xylocaine Vi (04/08/21 18:30) Vital Signs/I&O 04/08/21 04/08/21 17:59 18:17 Temp 36.5 Pulse 105 103 Resp 20 18 B/P (MAP) 184/120 (141) 166/88 Pulse Ox 95 O2 Delivery Room Air Room Air Blood Pressure Mean: 114 Progress Progress Note : Time: 18:26 Progress Note Viscous lidocaine and continue clindamycin Departure Impression Primary Impression: Dental abscess Disposition: 01 HOME, SELF-CARE Condition: Stable Departure-Patient Inst. Decision time for Depature: 18:26 Referrals: GALDINO SHEIKH MD (PCP/Family) Primary Care Physician Patient Instructions: Tooth Abscess (DC) Add. Discharge Instructions: Continue to brush your teeth and use mouthwash. Drink plenty of fluids. Tylenol 1000 mg every 8 hours necessary for pain. Aleve/naproxen 2 tablets twice a day as necessary for pain. Warm washcloths or compresses applied to the face as often as necessary to improve pain. Viscous lidocaine 5 cc on gauze applied directly over the tooth in question and do not eat or drink for 30 minutes afterwards so as to give the numbing jelly time to decrease pain. Follow-up with a dentist. All discharge instructions reviewed with patient and/or family. Voiced understanding. KASSI CORONA Apr 08, 2021 18:28
[2021-04-08] MEDS ORDERED: LIDOCAINE 2% VISCOUS 15 ML UDC PO ONE (18:30)
[2021-04-08 18:38] VITALS: BP 174/80
== END 2021-04-08 18:38 | disposition home or self-care (01) ==
LOC: EDUNIT# 17:40 → ER 17:42
DX: K04.7 Periapical abscess without sinus (principal); F41.9 Anxiety disorder, unspecified; F32.9 Major depressive disorder, single episode, unspecified; E66.9 Obesity, unspecified; Z68.39 Body mass index [BMI] 39.0-39.9, adult; Z79.899 Other long term (current) drug therapy
CPT/HCPCS: 99283

== ENCOUNTER 2021-10-01 17:00 | Emergency (ER) | payer BC ==
[~2021-10-01] VITALS: Ht 165.1 cm; Wt 108.8 kg
--- NOTE | 2021-10-01 17:57 | ED General ---
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 now dizziness is worsening. Source of Information: Patient Exam Limitations: No Limitations (BRITT SOUSA) History of Present Illness Date Seen by Provider: Oct 01, 2021 Time Seen by Provider: 17:54 Initial Comments Patient is a 51-year-old female who presents to ED with dizziness. Symptoms started Tuesday morning early in the morning. She states she turned to her side started having dizziness felt like the room was spinning. This dizziness has been intermittent since Tuesday. Appears to be worse with movement but does get dizziness while sitting. She started developing nasal congestion ear pressure and discomfort over the past 2 days. She denies of any focal neural deficits such as unilateral muscle weakness or sensory changes, visual change, slurred speech, vomiting, neck pain, fever. Denies cough, chest pain or shortness of breath. Similar symptoms in the past and thought this was secondary to dehydration. She states she was at a baseball game on Tuesday and may have got dehydrated however she has been drinking fluids. Denies ear ringing, hearing loss, abdominal pain, dysuria, history of stroke, cancer (BRITT SOUSA) Allergies and Home Medications Allergies Coded Allergies: oseltamivir (Verified Allergy, Severe, EDEMA, SOA, 04/20/19) Penicillins (Unverified Allergy, Mild, 08/25/08) ibuprofen (Unverified Allergy, Mild, 08/25/08) Patient Home Medication List Home Medication List Reviewed: Yes (BRITT SOUSA) Acetaminophen (Tylenol) 325 Mg Tablet, 650 MG PO Q6H PRN for PAIN-MILD (1-4), (Reported) Entered as Reported by: ROSA BANKS on 01/19/21 1010 Buspirone HCl (Buspirone HCl) 15 Mg Tablet, 15 MG PO HS, (Reported) Entered as Reported by: ROSA BANKS on 01/19/21 1010 Citalopram Hydrobromide (Citalopram HBr) 20 Mg Tablet, 20 MG PO HS, (Reported) Entered as Reported by: ROSA BANKS on 01/19/21 1010 Dextromethorphan Polistirex (Delsym) 30 Mg/5 Ml Ana.er.12h, 10 ML PO Q12H PRN for COUGH, (Reported) Entered as Reported by: ROSA BANKS on 01/19/21 1010 Meclizine HCl (Meclizine HCl) 25 Mg Tablet, 25 MG PO TID PRN for DIZZINESS Prescribed by: ZAK MALHOTRA on 10/01/212033 Review of Systems Review of Systems Constitutional: No chills, No diaphoresis, No malaise, No weakness EENTM: No blurred vision, No double vision Respiratory: No cough, No dyspnea on exertion Cardiovascular: No chest pain, No edema Gastrointestinal: No abdominal pain, No diarrhea, No nausea, No vomiting Genitourinary: No decreased output, No discharge Musculoskeletal: No back pain, No joint pain Skin: No change in color, No change in hair/nails Psychiatric/Neurological: Other (dizziness) Hematologic/Lymphatic: Denies Anemia (BRITT SOUSA) All Other Systems Reviewed Negative Unless Noted: Yes (BRITT SOUSA) Past Xofogxb-Zpzkip-Dhpjog Hx Patient Social History Tobacco Use?: No Smoking Status: Former Smoker Use of E-Cig and/or Vaping dev: No Substance use?: No Alcohol Use?: Yes Alcohol type: Beer, Hard Liquor, Wine Alcohol Frequency: Once in a while Pt feels they are or have been: No (BRITT SOUSA) Immunizations Up To Date Influenza Vaccine Up-to-Date: No; Not Current First/Initial COVID19 Vaccinat: declined (BRITT SOUSA) Seasonal Allergies Seasonal Allergies: No (BRITT SOUSA) Past Medical History Surgery/Hospitalization HX: ANXIETY; DEPRESSION Surgeries: Yes (DENTAL SURGERY) Respiratory: No Cardiac: No Neurological: No Reproductive Disorders: No (PERIMENOPAUSAL) Genitourinary: No Gastrointestinal: No Musculoskeletal: No Endocrine: Yes (OBESITY) HEENT: Yes (CHRONIC DENTAL PROBLEMS--"BAD TEETH") Cancer: No Psychosocial: Yes Anxiety Integumentary: No Blood Disorders: No Adverse Reaction/Blood Tranf: No (BRITT SOUSA) Family Medical History Asthma, Hypertension (BRITT SOUSA) Physical Exam Vital Signs Vital Signs - First Documented 10/01/21 17:12 Temp 37.1 Pulse 91 Resp 18 B/P (MAP) 149/87 (107) Pulse Ox 95 (PERNELL ERICKSON MD) Vital Signs Capillary Refill : (BRITT SOUSA) Height, Weight, BMI Height: 5'5.00" Weight: 220lbs. oz. 99.394339lv; 39.00 BMI Method:Stated General Appearance: No Apparent Distress, WD/WN Eyes: Bilateral Eye Normal Inspection, Bilateral Eye PERRL, Bilateral Eye EOMI HEENT: PERRL/EOMI, TMs Normal, Normal ENT Inspection, Pharynx Normal Neck: Full Range of Motion, Normal Inspection, Non Tender, Supple Respiratory: Chest Non Tender, Lungs Clear, Normal Breath Sounds, No Accessory Muscle Use, No Respiratory Distress Cardiovascular: Regular Rate, Rhythm, No Edema, No Gallop, No JVD, No Murmur Gastrointestinal: Normal Bowel Sounds, No Organomegaly, No Pulsatile Mass, Non Tender Back: Normal Inspection, No CVA Tenderness, No Vertebral Tenderness Extremity: Normal Capillary Refill, Normal Inspection, Normal Range of Motion, Non Tender, No Calf Tenderness Neurologic/Psychiatric: Alert, Oriented x3, No Motor/Sensory Deficits, Normal 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, 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 Norm as Tested Skin: Normal Color, Warm/Dry (BRITT SOUSA) Progress/Results/Core Measures Suspected Sepsis SIRS Temperature: Pulse: 91 Respiratory Rate: 18 Laboratory Tests 10/01/21 17:30: White Blood Count 10.1 Blood Pressure 149 /87 Mean: 107 Laboratory Tests 10/01/21 17:30: Creatinine 0.73, Platelet Count 332, Total Bilirubin 0.3 (BRITT SOUSA) Results/Orders Lab Results Laboratory Tests Test 10/01/21 17:30 10/01/21 18:05 Range/Units White Blood Count 10.1 4.3-11.0 10^3/uL Red Blood Count 4.31 3.80-5.11 10^6/uL Hemoglobin 12.4 11.5-16.0 g/dL Hematocrit 38 35-52 % Mean Corpuscular Volume 89 80-99 fL Mean Corpuscular Hemoglobin 29 25-34 pg Mean Corpuscular Hemoglobin Concent 32 32-36 g/dL Red Cell Distribution Width 14.9 H 10.0-14.5 % Platelet Count 332 130-400 10^3/uL Mean Platelet Volume 9.5 9.0-12.2 fL Immature Granulocyte % (Auto) 1 % Neutrophils (%) (Auto) 66 42-75 % Lymphocytes (%) (Auto) 22 12-44 % Monocytes (%) (Auto) 6 0-12 % Eosinophils (%) (Auto) 4 0-10 % Basophils (%) (Auto) 1 0-10 % Neutrophils # (Auto) 6.6 1.8-7.8 10^3/uL Lymphocytes # (Auto) 2.2 1.0-4.0 10^3/uL Monocytes # (Auto) 0.6 0.0-1.0 10^3/uL Eosinophils # (Auto) 0.4 H 0.0-0.3 10^3/uL Basophils # (Auto) 0.1 0.0-0.1 10^3/uL Immature Granulocyte # (Auto) 0.1 0.0-0.1 10^3/uL Sodium Level 136 135-145 MMOL/L Potassium Level 3.9 3.6-5.0 MMOL/L Chloride Level 96 L 98-107 MMOL/L Carbon Dioxide Level 28 21-32 MMOL/L Anion Gap 12 5-14 MMOL/L Blood Urea Nitrogen 9 7-18 MG/DL Creatinine 0.73 0.60-1.30 MG/DL Estimat Glomerular Filtration Rate 98 BUN/Creatinine Ratio 12 Glucose Level 131 H 70-105 MG/DL Calcium Level 9.8 8.5-10.1 MG/DL Corrected Calcium 9.9 8.5-10.1 MG/DL Magnesium Level 2.1 1.6-2.4 MG/DL Total Bilirubin 0.3 0.1-1.0 MG/DL Aspartate Amino Transf (AST/SGOT) 41 H 5-34 U/L Alanine Aminotransferase (ALT/SGPT) 45 0-55 U/L Alkaline Phosphatase 146 H 40-136 U/L Troponin I < 0.028 <0.028 NG/ML Total Protein 8.1 6.4-8.2 GM/DL Albumin 3.9 3.2-4.5 GM/DL Urine Color YELLOW Urine Clarity CLEAR Urine pH 6.0 5-9 Urine Specific [place] 1.020 1.016-1.022 Urine Protein NEGATIVE NEGATIVE Urine Glucose (UA) NEGATIVE NEGATIVE Urine Ketones NEGATIVE NEGATIVE Urine Nitrite NEGATIVE NEGATIVE Urine Bilirubin NEGATIVE NEGATIVE Urine Urobilinogen 0.2 < = 1.0 MG/DL Urine Leukocyte Esterase 2+ H NEGATIVE Urine RBC (Auto) NEGATIVE NEGATIVE Urine RBC NONE /HPF Urine WBC 5-10 H /HPF Urine Squamous Epithelial Cells 10-25 H /HPF Urine Renal Epithelial Cells NONE /HPF Urine Crystals NONE /LPF Urine Bacteria LARGE H /HPF Urine Casts NONE /LPF Urine Mucus NEGATIVE /LPF Urine Yeast MODERATE H /HPF Urine Culture Indicated YES (PERNELL ERICKSON MD) Micro Results Microbiology 10/01/21 Urine Culture - Preliminary, Resulted Escherichia coli Mixed Bacterial [place] (PERNELL ERICKSON MD) Vital Signs/I&O 10/01/21 10/01/21 17:12 20:46 Temp 37.1 Pulse 91 88 Resp 18 12 B/P (MAP) 149/87 (107) 126/69 Pulse Ox 95 96 10/02/21 00:00 Intake Total 1000 ml Balance 1000 ml (PERNELL ERICKSON MD) Vital Signs/I&O Capillary Refill : (BRITT SOUSA) Blood Pressure Mean: 107 Departure Communication (PCP) Patient presents to ED with dizziness. Dizziness appears to be worse with movement. No ear ringing, hearing loss. Bilateral TMs clear without evidence of otitis media. Patient neuro exam unremarkable. CT scan the head negative for hemorrhaging or mass. EKG showed sinus rhythm at [address] bpm. No evidence of ST elevation or pression. Cardiac work-up unremarkable. Lab work was otherwise unremarkable. Was given a liter of fluid. Initially was given meclizine with some improvement. Attempted [place]-Hallpike without significant nystagmus. She did become dizzy with head movement. Attempted Iglesia's maneuver with some success. She was given second dose of Phenergan and Ativan with more improvement of her symptoms. Patient with a stable gait here in the ED. Patient was requesting be discharged after observation and reevaluation. Provided outpatient ENT follow-up. She did receive a liter of fluid. Symptoms appear to be intermittent with acute onset with head movement. Appears to be more of a peripheral vertigo. If any worsening symptoms return back to ED for further evaluation. Patient urinalysis concerning for infection but did have notable amount of squamous cells. She has no urinary symptoms. Will not treat until culture returns. patient knowledge (BRITT SOUSA) Impression Primary Impression: Dizziness Disposition: 01 HOME, SELF-CARE Condition: Stable Departure-Patient Inst. Decision time for Depature: 20:33 (BRITT SOUSA) Referrals: GURPREET BLACK MD, CHAD C MD (PCP/Family) Primary Care Physician Patient Instructions: Dizziness, Adult ED Scripts Meclizine HCl (Meclizine HCl) 25 Mg Tablet 25 MG PO TID PRN for DIZZINESS, #16 TAB Prov: BRITT SOUSA 10/01/21 ATTENDING PHYSICIAN NOTE: I was physically present as attending physician in the emergency department during the care of this patient, but I was not directly involved in the decision making or delivery of care for this patient. (PERNELL ERICKSON MD) BRITT SOUSA Oct 01, 2021 17:57 PERNELL ERICKSON MD Oct 02, 2021 20:53
[2021-10-01 17:59] LABS: BASOPHILS # (AUTO) 0.1 10^3/uL (0.0-0.1); BASOPHILS % (AUTO) 1 % (0-10); EOSINOPHILS # (AUTO) 0.4 10^3/uL (0.0-0.3); EOSINOPHILS % (AUTO) 4 % (0-10); HEMATOCRIT 38 % (35-52); HEMOGLOBIN 12.4 g/dL (11.5-16.0); LYMPHOCYTES # (AUTO) 2.2 10^3/uL (1.0-4.0); LYMPHOCYTES % (AUTO) 22 % (12-44); MEAN CORPUSCULAR HEMOGLOBIN 29 pg (25-34); MEAN CORPUSCULAR HGB CONC 32 g/dL (32-36); MEAN CORPUSCULAR VOLUME 89 fL (80-99); MEAN PLATELET VOLUME 9.5 fL (9.0-12.2); MONOCYTES # (AUTO) 0.6 10^3/uL (0.0-1.0); MONOCYTES % (AUTO) 6 % (0-12); NEUTROPHILS # (AUTO) 6.6 10^3/uL (1.8-7.8); NEUTROPHILS % (AUTO) 66 % (42-75); PLATELET COUNT 332 10^3/uL (130-400); WHITE BLOOD COUNT 10.1 10^3/uL (4.3-11.0)
[2021-10-01] MEDS ORDERED: MECLIZINE 25 MG (ANTIVERT) TAB PO ONE (18:00)
[2021-10-01 18:03] LABS: ALBUMIN 3.9 GM/DL (3.2-4.5)
[2021-10-01 18:04] LABS: CHLORIDE 96 MMOL/L (98-107); POTASSIUM 3.9 MMOL/L (3.6-5.0); SODIUM 136 MMOL/L (135-145)
[2021-10-01 18:05] LABS: CALCIUM 9.8 MG/DL (8.5-10.1)
[2021-10-01 18:06] LABS: GLUCOSE 131 MG/DL (70-105); TOTAL PROTEIN 8.1 GM/DL (6.4-8.2)
[2021-10-01 18:07] LABS: CARBON DIOXIDE 28 MMOL/L (21-32)
[2021-10-01 18:08] LABS: BILIRUBIN,TOTAL 0.3 MG/DL (0.1-1.0)
[2021-10-01 18:09] LABS: ALKALINE PHOSPHATASE 146 U/L (40-136); CREATININE SERUM 0.73 MG/DL (0.60-1.30); GFR ESTIMATED 98
[2021-10-01 18:10] LABS: BILIRUBIN,URINE NEGATIVE (NEGATIVE); CLARITY,URINE CLEAR; COLOR,URINE YELLOW; GLUCOSE, URINE (UA) NEGATIVE (NEGATIVE); KETONES,URINE NEGATIVE (NEGATIVE); LEUKOCYTE ESTERASE ,URINE 2+ (NEGATIVE); NITRITE,URINE NEGATIVE (NEGATIVE); PROTEIN,URINE NEGATIVE (NEGATIVE)
[2021-10-01 18:11] LABS: BUN/CREATININE RATIO 12
[2021-10-01 18:12] LABS: ALANINE AMINOTRANSFERASE 45 U/L (0-55); MAGNESIUM 2.1 MG/DL (1.6-2.4)
[2021-10-01 18:39] LABS: BACTERIA,URINE LARGE /HPF; YEAST,URINE MODERATE /HPF
[2021-10-01] MEDS ORDERED: NS IV 1000 ML 1,000 ML IV STA (18:46)
[2021-10-01] MEDS ORDERED: NS IV 1000 ML 1,000 ML ONE (18:46)
--- NOTE | 2021-10-01 19:23 | Diagnostic Imaging Report ---
PROCEDURE: CT head without contrast. TECHNIQUE: Multiple contiguous axial images were obtained through the brain without the use of intravenous contrast. Auto Exposure Controls were utilized during the CT exam to meet ALARA standards for radiation dose reduction. INDICATION: Dizziness for several days, worsening. COMPARISON: 04/20/2019 FINDINGS: The ventricles and cortical sulci are age-appropriate. There is no midline shift or mass effect. No acute intracranial hemorrhage is seen. There is no CT evidence of acute territorial ischemia. The calvarium appears intact. Visualized paranasal sinuses demonstrate minimal mucosal thickening in the maxillary sinuses. There is a small amount of fluid in the right mastoid air cells. There is some streak artifact from a left earring, which could not be removed. IMPRESSION:. No acute intracranial hemorrhage or CT evidence of acute territorial ischemia. Dictated by: Dictated on workstation # [id number]
[2021-10-01] MEDS ORDERED: LORazepam INJ 2 MG/ML (ATIVAN) VIAL IVP ONE (19:30)
[2021-10-01] MEDS ORDERED: PROMETHAZINE INJ 25 MG/ML (PHENERGAN) AMP IVP ONE (19:30)
[2021-10-01] MEDS ORDERED: MECL-149 PO (20:34)
[2021-10-01 20:46] VITALS: BP 126/69
== END 2021-10-01 20:49 | disposition home or self-care (01) ==
LOC: EDUNIT# 17:00 → ER 17:02
DX: R42 Dizziness and giddiness (principal); E66.9 Obesity, unspecified; Z68.39 Body mass index [BMI] 39.0-39.9, adult; Z28.310 Unvaccinated for COVID-19
CPT/HCPCS: 36415; 70450; 80053; 81000; 83735; 84484; 85025; 87077; 87088; 87186; 93005